=== PATIENT | male | born 1955 | race Caucasian/White ===

== ENCOUNTER → 2016-06-20 | Outpatient (CLI) | payer BC, OTHER ==
[~2016-06-20] MED LIST: ALBU1AER9 INH; ALBU1NEB10 INH; ASPI81TA82 PO; ATOR-14 PO; BNC/40 PO; ESCI1TAB9 PO; LPR25 PO; MONT1TAB3 PO; MULT-260 PO; NITR0.4S UT; PRED10TA PO; SYMIN160 INH; TIOTCAP INH
[2016-06-20 13:24] LABS: BASO % 0.3 %; BASO ABS # 0.03 K/uL (0-0.2); COMPLETE YES; EOS % 1.2 %; HEMATOCRIT 42.8 % (42-52); IG% 0.6 %; LYMPH % 25.7 %; LYMPH ABS # 2.27 K/uL (1.2-3.4); MEAN CELL VOLUME 93.7 fL (80-100); MEAN CORPUSCULAR HGB CONC 35.3 g/dl (32-36); MEAN PLATELET VOLUME 9.2 fL (7.4-10.4); MONO % 9.4 %; NEUT % 62.8 %; PLATELET COUNT 278 K/uL (130-400); RED BLOOD COUNT 4.57 M/uL (4.7-6.1); WHITE BLOOD COUNT 8.84 K/uL (4.8-10.8)
[2016-06-20 13:34] LABS: ALB/GLOB RATIO 0.9 (0.9-2); ALKALINE PHOSPHATASE 94 U/L (45-117); ALT/SGPT 27 U/L (12-78); AST/SGOT 15 U/L (15-37); BLOOD UREA NITROGEN 12 mg/dl (7-18); BUN/CREATININE RATIO 11.7 (10-20); CARBON DIOXIDE 27 mmol/L (21-32); CHLORIDE 108 mmol/L (98-107); CHOLESTEROL 161 mg/dl (0-200); GLUCOSE 98 mg/dl (70-99); HDL CHOLESTEROL 54 mg/dl; LDL CHOLESTEROL CALCULATED 78 mg/dl; POTASSIUM 4.3 mmol/L (3.5-5.1); SODIUM 144 mmol/L (136-145); TRIGLYCERIDES 145 mg/dl (0-150); VERY LOW DENSITY LIPOPROT CALC 29 mg/dl
[2016-06-20 13:44] LABS: ESTIMATED AVERAGE GLUCOSE 105 mg/dl; HA1C FLAG Normal (Normal)
== END | disposition home or self-care (01) ==
LOC: C.LABMFLN 08:41
PROVIDERS: ATTEND Internal Medicine Pulmonary Disease
DX: G47.19 Other hypersomnia (principal)

== ENCOUNTER 2023-06-06 09:41 | Inpatient (IN) ==
--- NOTE | 2023-06-01 09:32 | Anesthesiology Consultation ---
Date of Service June 01, 2023 Assessment & Plan (1) Encounter for pre-operative examination: - Infectious disease screening: Per assessment on 06/01/23: No known infectious disease contacts or current infectious disease symptoms (does report chronic post-nasal drop at baseline). No noted recent Covid positive test result. - Cardiology visit (04/03/23): "Coronary disease: By history he has coronary artery disease, he had a stress test in December 2021 which was a pharmacologic stress test but nothing since. Since he cannot exert himself very well due to his back pain I think we need to repeat the stress test, especially in view of his chest discomfort although that does not sound typical for ischemia. I am going to her have a dobutamine stress echo done, since time is short I will have that done at the hospital tomorrow.. Congestive heart failure: He carries a diagnosis of congestive heart failure however does not seem to have problems with edema despite being on his feet and being on amlodipine. He is on torsemide. His left ventricular function has been good, as long as he has good left ventricular function on his echo (done as part of his dobutamine stress test) I would not pursue further evaluation.. Hypertension: His blood pressure is good today, he is on a number of antihypertensives but it seems appropriate.. Chest pain: His chest pain is quite atypical but his description of a "tearing" feeling is a little worrisome and since he also has back pain I think we need to exclude an aortic dissection. I think it is unlikely but I do not want to miss that and he has not had a CT angiogram that I can see. I can get that scheduled tomorrow after his stress test.. Dyslipidemia: He is on atorvastatin 20 mg daily, his cholesterol profile is not ideal with a high non-HDL cholesterol (the calculated LDL on his last lipid profile says 11, I believe that is a mistake). I have not changed his atorvastatin but I would try to titrate that up to 80 mg daily if possible. That does not need to be done before surgery. As long as his dobutamine stress echo does not show ischemia, his LV function is good on the ec hocardiogram and he does not have problems with his aorta he should be stable for surgery on Sunday." - PCP visit (05/16/23): "Hyperlipidemia.. Pt will complete lipid panel prior to leaving the office today.. Lumbosacral radiculopathy at L5.. With need for LS spine surgery. f/u was made with [facility] again documenting his clearance and they will contact patient to reschedule surgery.. Pt comes today with his son stating he received a letter from cardiology telling him to see his PCP?.. He was asked to have cardiac clearance and this was done on 04/[address] Hernández. His note stated that if stress test and CT chest is normal pt could proceed with surgery. Unfortunately, while pt was completing testing, his surgery was cancelled. There is a f/u task in this EMR started on 04/10 and on 04/18 the documentation for clearance was faxed to [facility]." Addendum (05/16/23): "Spoke with Kenji in cardiology and she is unaware why patient would have been contacted. There was and Act [address] chest that was completed but pt is aware of this nodule and it has been followed and has been stable." - Surgery was originally scheduled for 04/09/23 but rescheduled to 06/06/23 as patient was still ungoing preop-cardiology workup (CTA + DSE). DSE + CTA chest/abdomen/pelvis done (04/04/23)- No evidence of ischemia/good LV function/no evidence of dissection. Preop labs done 03/26/23 were unremarkable- per patient, surgeon is not having patient update labs prior to rescheduled surgery date. Will order CBC, BMP, T&S for DOS. > Patient acceptable risk for surgery pending preop labs DOS. Chart Review Chart Review: Acceptable Risk for Surgery and Patient NOT seen in Pre Admission Testing History Surgery Operation Date: 06/06/23 11:35 Proposed Procedures p L5-S1 Decompression and Fusion, Spinal Cord Monitoring - Ben Perdomo, Height/Weight Height: 5 ft 6 in Weight: 120.202 kg Allergies Allergy/AdvReac Type Severity Reaction Status Date / Time No Known Allergies Allergy Verified 05/30/23 12:49 Medications Home Medications Medication Instructions Recorded Confirmed Last Taken albuterol sulfate 2.5 mg/3 mL 2.5 mg (3 mL) inhalation Q4H PRN 11/01/22 05/30/23 Unknown (0.083 %) solution for nebulization Shortness Of Breath Or Wheezing #75 mL albuterol sulfate 90 mcg/actuation 2 puff inhalation Q4H PRN 11/01/22 05/30/23 Unknown aerosol inhaler (ProAir HFA) Shortness Of Breath #8.5 grams amlodipine 5 mg tablet 5 mg PO QAM #90 tabs 11/01/22 05/30/23 Unknown metoprolol tartrate 50 mg tablet 50 mg PO BID #180 tabs 11/01/22 05/30/23 Unknown potassium chloride 20 mEq 20 meq PO BID #60 tabs 11/01/22 05/30/23 Unknown tablet,extended release telmisartan 80 mg tablet 80 mg PO QAM #90 tabs 11/01/22 05/30/23 Unknown atorvastatin 40 mg tablet 40 mg PO HS #90 tabs 05/17/23 05/30/23 Unknown nitroglycerin 0.4 mg sublingual 0.4 mg sublingual UD PRN Chest Pain 05/30/23 05/30/23 Unknown tablet (Nitrostat) torsemide 10 mg tablet 20 mg PO QAM 05/30/23 05/30/23 Unknown Past Medical History Medical History CAD (coronary artery disease), [place] coronary artery 2013 cardiac catheterization, non-obstructive COPD (chronic obstructive pulmonary disease) "Controlled" Diastolic congestive heart failure Hepatic steatosis History of blood transfusion In childhood after tonsillectomy History of colon polyps History of COVID-2019- "bad cold" symptoms > resolved Hyperlipidemia Hypertension Mild sleep apnea No device Non compliance w medication regimen "inconsistent use" per PAT RN call 05/30/23 Obesity Post-nasal drip Chronic Pulmonary nodule Under surveillance Past Family History Family History Mother Myocardial infarction Tuberculosis COPD (chronic obstructive pulmonary disease) Cancer Blood and Kidney Cancer Father Myocardial infarction Heart disease Denies family history of Ovarian cancer Prostate cancer Breast cancer Colorectal cancer Past Surgical History Surgical History H/O exploratory laparotomy History of cholecystectomy Hx of cardiac catheterization 2012 ([place])- no stents Hx of carpal tunnel repair B/L Hx of colonoscopy 10/04/22: MAC at [facility] Hx of tonsillectomy Hx of wisdom tooth extraction Social History Smoking Status: Former smoker tobacco type: cigarettes Smoking cigarettes per day: Quit smoking cigarettes 30 years ago Do You Dip or Chew Tobacco: Yes (1 can every 2-3 days/advised npo.) Smoking End Date: 10-12 yr ago Hx Alcohol Use: Yes Alcohol type: beer and hard liquor alcohol intake frequency: 0-2 drinks per day Hx Substance Use: No substance use type: does not use Testing Laboratory Results 03/26/23 WBC 9.47 H/H 14.8/42.8 PLATELETS 300 SODIUM 141 POTASSIUM 3.9 CHLORIDE 106 CO2 30 BUN 15 CREATININE 1.13 GLUCOSE 98 PT 10.7 PTT 26.1 INR 1.0 TYPE AND SCREEN A+Ab- Electrocardiogram Date: 03/26/23 NSR, rate 66 bpm. Incomplete RBBB. Chest X-Ray Date: 03/26/23 No acute chest disease. Stress Test Date: 04/04/23 Type: DSE Negative dobutamine stress echo/ECG for ischemia at 88% MPHR. No chest pain reported. Echo: EF 65-70%. No regional wall motion abnormality. Moderate concentric LVH. No significant valvular abnormalities. Normal RVSP, assuming normal right atrial pressure. Other Testing Chest CTA Date: 04/04/23 1. No evidence for an aortic dissection. 2. Emphysema and chronic interstitial thickening again noted. 3. A stable 7 mm irregular nodule within the right middle lobe. Continued one year chest CT follow-up recommended to ensure stability. 4. Hepatic steatosis. Abd/Pelvis CTA Date: 04/04/23 1. No evidence of aortic dissection. 2. Hepatic steatosis.
[~2023-06-06 09:41] MED LIST changes: +ACETAMINOPHEN 500 MG TAB PO SCH; -ALBU1AER9 INH; -ALBU1NEB10 INH; -ASPI81TA82 PO; -ATOR-14 PO; -BNC/40 PO; +CeleBREX 200 MG CAP PO SCH; -ESCI1TAB9 PO; +GABAPENTIN 300 MG CAP PO SCH; -LPR25 PO; +LR 60ML/HR IV SCH; -MONT1TAB3 PO; -MULT-260 PO; -NITR0.4S UT; -PRED10TA PO; -SYMIN160 INH; -TIOTCAP INH
--- NOTE | 2023-06-06 10:22 | History & Physical Bridge Note ---
Date of Service June 06, 2023 History & Physical Bridge Note I have examined the patient, reviewed the History & Physical and in the interval since the performance of the History & Physical I have noted the following changes of clinical significance: no changes noted
--- NOTE | 2023-06-06 10:23 | History & Physical Report ---
Date of Service June 06, 2023 Assessment & Plan (1) Lumbosacral radiculopathy at L5: Plan: L5-S1 decompression and fusion History of Present Illness Chief Complaint: Back and leg pain Primary Care Provider: Maurisio Aponte MD This is 67-year-old male presents with chronic persistent back and leg pain and failing since course of nonoperative care is here for surgical invention. Allergies Allergy/AdvReac Type Severity Reaction Status Date / Time No Known Allergies Allergy Verified 06/06/23 10:18 Home Medications Medication Instructions Recorded Confirmed Type albuterol sulfate 2.5 mg/3 mL 2.5 mg (3 mL) inhalation Q4H PRN 11/01/22 05/30/23 Rx (0.083 %) solution for nebulization Shortness Of Breath Or Wheezing #75 mL albuterol sulfate 90 mcg/actuation 2 puff inhalation Q4H PRN 11/01/22 05/30/23 Rx aerosol inhaler (ProAir HFA) Shortness Of Breath #8.5 grams amlodipine 5 mg tablet 5 mg PO QAM #90 tabs 11/01/22 05/30/23 Rx metoprolol tartrate 50 mg tablet 50 mg PO BID #180 tabs 11/01/22 05/30/23 Rx potassium chloride 20 mEq 20 meq PO BID #60 tabs 11/01/22 05/30/23 Rx tablet,extended release telmisartan 80 mg tablet 80 mg PO QAM #90 tabs 11/01/22 05/30/23 Rx atorvastatin 40 mg tablet 40 mg PO HS #90 tabs 05/17/23 05/30/23 Rx nitroglycerin 0.4 mg sublingual 0.4 mg sublingual UD PRN Chest Pain 05/30/23 05/30/23 History tablet (Nitrostat) torsemide 10 mg tablet 20 mg PO QAM 05/30/23 05/30/23 History Past Med/Surg History Medical History CAD (coronary artery disease), [place] coronary artery 2013 cardiac catheterization, non-obstructive COPD (chronic obstructive pulmonary disease) "Controlled" Diastolic congestive heart failure Hepatic steatosis History of blood transfusion In childhood after tonsillectomy History of colon polyps History of COVID-2019- "bad cold" symptoms > resolved Hyperlipidemia Hypertension Mild sleep apnea No device Non compliance w medication regimen "inconsistent use" per PAT RN call 05/30/23 Obesity Post-nasal drip Chronic Pulmonary nodule Under surveillance Surgical History H/O exploratory laparotomy History of cholecystectomy Hx of cardiac catheterization 2012 ([place])- no stents Hx of carpal tunnel repair B/L Hx of colonoscopy 10/04/22: MAC at [facility] Hx of tonsillectomy Hx of wisdom tooth extraction Family History Mother Myocardial infarction Tuberculosis COPD (chronic obstructive pulmonary disease) Cancer Blood and Kidney Cancer Father Myocardial infarction Heart disease Denies family history of Ovarian cancer Prostate cancer Breast cancer Colorectal cancer Social History Smoking Status: Former smoker Tobacco Type: Pipe and Smokeless Tobacco (Dip or Chew) Age Started Using Tobacco: 13; Age Quit Using Tobacco: 38; Cigarettes Per Day: Quit smoking cigarettes 30 years ago; Smoking End Date: 10-12 yr ago; Second Hand Exposure: Yes (HX); Do You Dip or Chew Tobacco: Yes (1 can every 2-3 days/advised npo.); Hx Alcohol Use: Yes Alcohol type: beer and hard liquor Alcohol Intake Frequency: 4 or More x per/Week Alcohol Intake Frequency Comment: Once a night Hx Substance Use: No Preferred Language: Ivorian Communication Ability: Effective Visual Impairment: Partially Limited Hearing Ability: Use of Hearing Aid Supervisor Sample Required: No Beliefs That Will Affect Care: None marital status: / marital status details: 42 years. Marcus of COVID infection 04/2020 Current Living Situation: Alone Current Living Situation Comment: Youngest son lives with him at home current occupational status: retired How many Children do You have: 2 How many Children do You have Comment: Oldest son is an officer in the and stays in touch. Youngest son lives with him at home. Other Information That Helps Us Care for You: Yes (pt reports would like to go to rehab post op) Feels Safe at Home: Yes Childhood Exposure to Second-Hand Smoke: No Diet: regular caffeine: Yes (Coffee ) during the past year weight has: remained stable Dental Care, Regularly: No Physical Activity Frequency: 3-4 Times per Week Seatbelt Use: always Sunscreen Use: No Do you think of yourself as: straight/heterosexual Gender Identity: Male Assistive Devices: Glasses and Hearing Aid - Bilateral Assistive Devices Comment: top plate, don't wear hearing aides. Physical Exam Physical Exam: Patient is alert and oriented Heart regular rhythm Lungs clear Results & Data Results & Data Vital Signs (Past 12 Hours) Vital Signs Temp Pulse Resp BP Pulse Ox O2 Del Method 06/06/23 10:11 36.5 C 80 20 132/92 96 Room Air
[2023-06-06 10:31] LABS: Basophils # (auto) 0.06 K/uL (0.00-0.20); Basophils % (auto) 0.6 %; Eosinophils # (auto) 0.15 K/uL (0.00-0.50); Eosinophils % (auto) 1.5 %; Hemoglobin 15.2 g/dl (14.0-18.0); Immature Granulocytes # (auto) 0.04 K/uL (0.01-0.20); Immature Granulocytes % (auto) 0.4 %; Lymphocytes # (auto) 2.14 K/uL (1.20-3.40); Lymphocytes % (auto) 21.3 %; Mean Corpuscular Hemoglobin 31.2 pg (25.0-34.0); Mean Corpuscular Hgb Conc 35.3 g/dL (32.0-36.0); Mean Corpuscular Volume 88.3 fL (80.0-100.0); Mean Platelet Volume 8.7 fL (9.4-12.4); Monocytes # (auto) 0.86 K/uL (0.11-0.59); Monocytes % (auto) 8.6 %; Neutrophils # (auto) 6.78 K/uL (1.40-6.50); Neutrophils % (auto) 67.6 %; Platelet Count 301 K/uL (130-400); RDW Coefficient of Variation 12.8 % (11.5-14.5); RDW Standard Deviation 41.2 fL (36.4-46.3); Red Blood Count 4.87 M/uL (4.70-6.10); White Blood Count 10.03 K/ul (4.8-10.8)
[2023-06-06] MEDS ORDERED: BUPIVACAINE/EPINEPHRINE 0.5% MPF 1:200,000 30 ML VIAL ONE (10:36)
[2023-06-06] MEDS ORDERED: ceFAZolin 330 MG/ML 1 GM VIAL ONE (10:36)
[2023-06-06] MEDS ORDERED: MIDAZOLAM HCL 1 MG/ML 2ML VIAL ONE (10:41)
[2023-06-06] MEDS ORDERED: fentaNYL citrate PF 100 MCG/2 ML VIAL ONE ×3 (10:41→12:26)
[2023-06-06] MEDS ORDERED: HYDROmorphone INJ 2 MG/ML SYR/VIAL IV PRN (10:54)
[2023-06-06] MEDS ORDERED: ePHEDrine sulfate 50 MG/ML AMP IV PRN (10:54)
[2023-06-06] MEDS ORDERED: ONDANSETRON INJ 2 MG/ML 2 ML VIAL IV PRN ×2 (10:54→14:53)
[2023-06-06] MEDS ORDERED: PROMETHAZINE HCL 12.5 MG in SODIUM CHLORIDE 0.9% 50 ML IV PRN ×2 (10:54→14:53)
[2023-06-06] MEDS ORDERED: ATROPINE SULFATE 0.1 MG/ML 10ML SYR IV PRN (10:54)
[2023-06-06] MEDS ORDERED: ROCURONIUM BROMIDE 10 MG/ML 5 ML VIAL IV ONE ×2 (11:24→12:16)
[2023-06-06] MEDS ORDERED: PROPOFOL IV EMULSION 10 MG/ML 20 ML VIAL IV ONE (11:24)
[2023-06-06] MEDS ORDERED: DEXAMETHASONE SOD INJ 4 MG/ML VIAL ONE (11:24)
[2023-06-06] MEDS ORDERED: GLYCOPYRROLATE 0.2 MG/ML VIAL ONE (11:24)
[2023-06-06] MEDS ORDERED: ONDANSETRON INJ 2 MG/ML 2 ML VIAL ONE (11:24)
[2023-06-06] MEDS ORDERED: LIDOCAINE 2% 2 ML VIAL/AMP(20MG/ML) INFIL ONE (11:24)
[2023-06-06] MEDS ORDERED: FLOSEAL HEMOSTATIC MATRIX 10ML TOP ONE (11:39)
[2023-06-06] MEDS ORDERED: PHENYLEPHRINE 100MCG/ML 10ML SYR IV ONE (11:47)
[2023-06-06 11:56] LABS: BUN Creatinine Ratio 12.7 (10-20); Calcium 9.6 mg/dl (8.6-10.3); Creatinine Clr Calc Pharmacy 65.7 ml/min; Est GFR (Non-African American) 57.8 ml/min; Potassium 3.5 mmol/L (3.5-5.1)
[2023-06-06] MEDS ORDERED: SUGAMMADEX SODIUM 200 MG/2 ML VIAL IV ONE (12:33)
--- NOTE | 2023-06-06 12:44 | Operative Report ---
Post Operative Report Pre & Post Diagnosis Operation Date: 06/06/23 11:35 Pre-Op Diagnosis: Lumbosacral Radiculopathy at L5 Post-Op Diagnosis: Lumbosacral Radiculopathy at L5 I identified the patient and participated in the time-out.: Yes Procedure Operation Date: 06/06/23 11:35 Actual Procedures #1 lumbar decompression bilaterally facetectomies and foraminotomies L4-L5 L5- S1. #2 posterior spinal fusion L4 S1. #3 placed posterior instrumentation L5- S1. #4 interbody fusion L5-S1. #5 placement Spira 15 x 26 mm x 2 at L5-S1. #6 placement locally harvested morselized autograft in the posterior gutters. #7 placement of Morpheus bone graft in the interbody space and infuse collagen sponge combined with master graft in the posterior lateral gutters. Surgeon Ben Perdomo, DO Podiatric Surgeon Cassidy Daniels Estimated Blood Loss 200 Findings See Below The patient is 5 foot 6 weighing over 114 kg with a BMI in excess of 40. Patient's body habitus did contribute to significant technical difficulty with positioning exposure and the procedure itself adding at least 50% increased operative time. Specimens None Indications This is a 67-year-old male presents above-mentioned diagnosis and failing since course of nonoperative care is here for surgical invention. Description of Procedure Patient was met with identified informed consent obtained. Patient was then taken to the operative suite underwent patient placed in a prone position the Guero table top the Hemanth frame. All bony prominences well-padded eyes inspected to ensure no external pressure placed upon them. This point lumbar spine was prepped draped in a sterile fashion. Sharp dissection with the assistance of Bovie cautery was formed down to and exposing the lamina and transverse processes of L5 and the sacral ala bilaterally. From caudal to cephalad fashion complete laminectomy of L5 partial laminectomy of L4 was performed including bilateral medial facetectomies and foraminotomies addressing all spinal stenosis. Pedicle screws were then placed in L5 and S1 levels bilaterally with assistance of fluoroscopy and appropriate sized paolo placed. By way the transforaminal approach the right a discectomy of L5-S1 was performed endplates guided to subcortical bleeding bone and a 15 x 26 mm Spira cage filled with Morpheus tapped in position. Then proceeded the transforaminal region on the left completed the discectomy curetted the endplates to subcortical bleeding bone and placed a second 15 x 26 mm Spira cage with Morpheus bone graft into position. The rods were then compressed locked into final position bilaterally. The transverse processes of L5 and the sacral ala burred to subcortically bone. Infuse collagen sponge combined with mass graft and local autograft placed in the posterior lateral gutters. 15 round SAMANTA inserted. The incision was then closed with 1 Vicryl the fascia 2-0 Vicryl subcutaneously and 4 Monocryl for final skin closure. Steri-Strips sterile dressing placed. Patient waken taken to PACU in stable condition. Please note spinal cord monitoring was utilized at the procedure no changes noted. Lastly Cassidy Daniels was present at the entire procedure and on the patient positioning complex portion of the surgery and final skin closure. I attest to the content of the Intraoperative Record and any orders documented therein. Any exceptions are noted below.
[2023-06-06] MEDS: fentaNYL citrate PF 100 MCG/2 ML VIAL IV PRN ×3 (13:17→13:55)
[2023-06-06] MEDS ORDERED: ALBUTEROL HFA 8 GM INHALER INH ONE (14:06)
--- NOTE | 2023-06-06 14:21 | Anesthesiology Progress Note ---
Date of Service June 06, 2023 Anesthesia Post Procedure Vital Signs Vital Signs: Temp Pulse Pulse Resp BP Pulse Ox O2 Del Method 06/06/23 14:00 83 16 130/100 94 Nasal Cannula 06/06/23 13:50 36.6 C 87 12 124/90 94 Nasal Cannula 06/06/23 13:40 93 H 12 136/100 93 Nasal Cannula 06/06/23 13:30 92 H 12 91/69 L 93 Nasal Cannula 06/06/23 13:20 94 H 20 142/101 H 93 Nasal Cannula 06/06/23 13:10 87 16 159/94 H 98 Nasal Cannula 06/06/23 13:01 36.5 C 86 16 147/109 H 98 Oxymask 06/06/23 10:11 36.5 C 80 20 132/92 96 Room Air O2 Flow Rate 06/06/23 14:00 2 06/06/23 13:50 2 06/06/23 13:40 2 06/06/23 13:30 2 06/06/23 13:20 2 06/06/23 13:10 2 06/06/23 13:01 6 06/06/23 10:11 Pain Intensity Bilateral Lower Back: Pain Intensity: 4 Transfer of Care Handoff Completed per policy Notes Mental Status: alert / awake / arousable Patient Amnestic to Procedure: Yes Nausea / Vomiting: adequately controlled Pain: adequately controlled Airway Patency, RR, SpO2: stable & adequate BP & HR: stable & adequate Hydration State: stable & adequate Anesthetic Complications: no major complications apparent
[2023-06-06] MEDS ORDERED: DO NOT ADMINISTER FLU VACCINE PRN (14:53)
[2023-06-06] MEDS ORDERED: ALUMINUM/MAGNESIUM SUSP 30 ML UDC PO PRN (14:53)
[2023-06-06] MEDS ORDERED: hydrOXYzine HCl 25 MG TAB PO PRN (14:53)
[2023-06-06] MEDS ORDERED: DO NOT ADMINISTER PNEUMOCOCCAL VACCINE PRN (14:53)
[2023-06-06] MEDS ORDERED: LORazepam 0.5 MG TAB PO PRN (14:53)
[2023-06-06] MEDS ORDERED: MAGNESIUM HYDROXIDE SUSP 30 ML UDC PO PRN (14:53)
[2023-06-06] MEDS ORDERED: FAMOTIDINE 20 MG TAB PO PRN (14:53)
[2023-06-06] MEDS ORDERED: METOCLOPRAMIDE HCL INJ 5 MG/ML 2 ML VIAL IV PRN (14:53)
[2023-06-06] MEDS ORDERED: NITROGLYCERIN SL 0.4 MG/TAB TAB SL PRN (14:53)
[2023-06-06] MEDS ORDERED: HYDROmorphone INJ 1 MG/ML SYRINGE IV PRN (14:53)
[2023-06-06] MEDS ORDERED: ACETAMINOPHEN 1,000 MG/100 ML VIAL IV PRN (14:53)
[2023-06-06] MEDS ORDERED: bisacodyL 10 MG SUPP PR PRN (14:53)
[2023-06-06] MEDS ORDERED: ONDANSETRON 4 MG OD TAB PO PRN (14:53)
[2023-06-06] MEDS ORDERED: SOD PHOSPHATE/SOD BIPHOSPHATE ENEMA 132 ML BTL PR PRN (14:53)
[2023-06-06] MEDS ORDERED: NALOXONE HCL 0.4 MG/1 ML VIAL/CARP IV PRN (14:53)
[2023-06-06] MEDS ORDERED: LORazepam 0.5 MG in SYRINGE 0.25 ML IV PRN (14:53)
[2023-06-06] MEDS ORDERED: ACETAMINOPHEN 500 MG TAB PO PRN (14:53)
[2023-06-06] MEDS ORDERED: HYDROmorphone INJ 0.5 MG/0.5 ML SYR IV PRN (14:53)
[2023-06-06] MEDS ORDERED: ALBUTEROL HFA 8 GM INHALER INH PRN (14:53)
[2023-06-06] MEDS ORDERED: diphenhydrAMINE Capsule 25 MG CAP PO PRN (14:53)
--- NOTE | 2023-06-06 15:03 | Fluoroscopy Report ---
[place] lumbar spine 2-3V CLINICAL HISTORY: L5-S1 DECOMP/FUSION TECHNIQUE: 2 views were obtained with the C-arm in the OR with the above procedure. Total fluoroscopy time was 21.4 seconds. Radiation dose was 21.95 mGy. Comparison: Comparison is made to CT abdomen pelvis 04/04/2023 FINDINGS/IMPRESSION: Intraoperative images were obtained of L5-S1 decompression and fusion. Please correlate with intraoperative fluoroscopy and operative report. ACT 112: Negative or not required by law. Electronically signed by: Nino Peña M.D. 06/06/2023 3:02 PM
--- NOTE | 2023-06-06 16:18 | Hospitalist Consultation ---
Date of Consultation June 06, 2023 Assessment & Plan (1) S/P lumbar spinal fusion: -The patient is Post-op Day #0, S/P L5-S1 Decompression and Fusion, Spinal Cord Monitoring with Dr. Perdomo -Perioperative abx, DVT PPX, and pain control per the primary team -No reported intraoperative complications, EBL was listed as 5 cc -Patient is currently hemodynamically stable and stable on 2L NC, and non-toxic appearing -No acute lab abnormalities today -Agree with CBC and BMP tomorrow, we will follow -Patient will need to be monitoring closely moving forward for alcohol withdrawal with his nightly alcohol use -Medicine will continue to follow, reach out with any questions/concerns (2) Alcohol abuse: -Patient reports nightly alcohol use consisting of 2 half pints of tequila and a beer -Last drink was last night -Denies a hx of withdrawal symptoms -No current signs/symptoms of active withdrawal at this time -Will start AWSS with at risk protocol -Will give 100 100 mg IV thiamine and 1mg IV folic acid now >Will continue daily PO thiamine and folic acid tomorrow -If he begins to develop sings/symptoms of alcohol withdrawal will need to be upgraded to med/tele -Will obtain ECG now (3) CHF (congestive heart failure): -Patient has a hx of HFpEF -Currently euvolemic on exam -S/P 1L LR post-op -Maintenance LR had been ordered at 150 mL, decreasing to 100 mL/hr for now -Explained to his nurse that we can DC his IV fluids if he is able to safely eat/drink -Continue to monitor volume status closely (4) Hypertension: -Currently stable -Agree with continuing BID metoprolol tonight -Agree with resuming amlodipine tomorrow am if hemodynamically stable -Can resume Telmisartan tomorrow am if hemodynamically stable and renal function is stable -Can plan to resume Torsemide tomorrow as he is receiving post-op IV hydration at this time (5) Hyperlipidemia: -Continue statin (6) Chronic obstructive pulmonary disease: -Previous smoker -Was stable on 2L NC at the time of exam, order placed to titrate O2 to keep SpO2 between 89-92% -Lung sounds are clear -Continue prn albuterol -Incentive spirometry ordered Plan The patient was discussed with Dr. Boland at the time of the consult History of Present Illness Reason for Consultation: Post-op medical management Requesting Physician: Ben Perdomo DO Attending Physician: Dr. Dylan Boland History of Present Illness Demetris is a 67 year old male with a PMH significant for CAD, HTN, HFpEF, hyperlipidemia, NEISHA, COPD, and chronic back pain who presented to [facility] on 06[facility]/23 for L5-S1 Decompression and Fusion, Spinal Cord Monitoring with Dr. Perdomo. Per the operative report, EBL was listed as 200 cc, anesthesia type was not listed, and there were no reported intraoperative complications. Review of his vitals shows him to be stable on 3L NC and mildly hypertensive at 163/100 prior to my exam. At the time of the exam the patient was sitting in bed in no acute distress with his sons sitting bedside. He states that he is currently feeling well and wants to try and get out of bed soon. I explained to him that he needs to follow his nurses' orders as they will know what he can safely do post-op. When asked, he confirms that he is a former smoker, current smokeless tobacco user, and daily alcohol user. When asked, he states that he drinks 2 "juice glasses" of tequila a night and a beer as well. His one son explains that the size of glasses is approximately 1/2 of a pint glass. When asked, he denies a history of withdrawal symptoms when he does not drink alcohol. He did not take any of his home medications this am prior to arrival. He denies recent fever, chills, chest pain, SOB, tremor, anxiety, auditory/visual hallucinations, abd pain, nausea, vomiting, diarrhea, dysuria, hematuria, melenla, LE swelling, and new pain/paresthesias in the LE's since his procedure. Please refer to Dr. Boland's attestation for any changes to the treatment plan Allergies Allergy/AdvReac Type Severity Reaction Status Date / Time No Known Allergies Allergy Verified 06/06/23 10:18 Home Medications Medication Instructions Recorded Confirmed Type albuterol sulfate 2.5 mg/3 mL 2.5 mg (3 mL) inhalation Q4H PRN 11/01/22 06/06/23 Rx (0.083 %) solution for nebulization Shortness Of Breath Or Wheezing #75 mL albuterol sulfate 90 mcg/actuation 2 puff inhalation Q4H PRN 11/01/22 06/06/23 Rx aerosol inhaler (ProAir HFA) Shortness Of Breath #8.5 grams amlodipine 5 mg tablet 5 mg PO QAM #90 tabs 11/01/22 06/06/23 Rx metoprolol tartrate 50 mg tablet 50 mg PO BID #180 tabs 11/01/22 06/06/23 Rx potassium chloride 20 mEq 20 meq PO BID #60 tabs 11/01/22 06/06/23 Rx tablet,extended release telmisartan 80 mg tablet 80 mg PO QAM #90 tabs 11/01/22 06/06/23 Rx atorvastatin 40 mg tablet 40 mg PO HS #90 tabs 05/17/23 06/06/23 Rx nitroglycerin 0.4 mg sublingual 0.4 mg sublingual UD PRN Chest Pain 05/30/23 06/06/23 History tablet (Nitrostat) torsemide 10 mg tablet 20 mg PO QAM 05/30/23 06/06/23 History Patient History Medical History CAD (coronary artery disease), [place] coronary artery 2012 cardiac catheterization, non-obstructive COPD (chronic obstructive pulmonary disease) "Controlled" Diastolic congestive heart failure Hepatic steatosis History of blood transfusion In childhood after tonsillectomy History of colon polyps History of COVID-2019- "bad cold" symptoms > resolved Hyperlipidemia Hypertension Mild sleep apnea No device Non compliance w medication regimen "inconsistent use" per PAT RN call 05/30/23 Obesity Post-nasal drip Chronic Pulmonary nodule Under surveillance Surgical History H/O exploratory laparotomy History of cholecystectomy Hx of cardiac catheterization [place] no stents Hx of carpal tunnel repair B/L Hx of colonoscopy 10/04/22: MAC at [facility] Hx of tonsillectomy Hx of wisdom tooth extraction Family History Mother Myocardial infarction Tuberculosis COPD (chronic obstructive pulmonary disease) Cancer Blood and Kidney Cancer Father Myocardial infarction Heart disease Denies family history of Ovarian cancer Prostate cancer Breast cancer Colorectal cancer Social History Smoking Status: Former smoker Tobacco Type: Pipe and Smokeless Tobacco (Dip or Chew) Age Started Using Tobacco: 13; Age Quit Using Tobacco: 38; Cigarettes Per Day: Quit smoking cigarettes 30 years ago; Smoking End Date: 10-12 yr ago; Second Hand Exposure: Yes (HX); Do You Dip or Chew Tobacco: Yes (1 can every 2-3 days/advised npo.); Hx Alcohol Use: Yes Alcohol type: beer and hard liquor Alcohol Intake Frequency: 4 or More x per/Week Alcohol Intake Frequency Comment: Once a night Hx Substance Use: No Preferred Language: American Communication Ability: Effective Visual Impairment: Partially Limited Hearing Ability: Use of Hearing Aid Event Av Operator Required: No Beliefs That Will Affect Care: None marital status: / marital status details: 42 years. Marcus of COVID infection 04/2020 Current Living Situation: Alone Current Living Situation Comment: Youngest son lives with him at home current occupational status: retired How many Children do You have: 2 How many Children do You have Comment: Oldest son is an officer in the and stays in touch. Youngest son lives with him at home. Other Information That Helps Us Care for You: Yes (pt reports would like to go to rehab post op) Feels Safe at Home: Yes Childhood Exposure to Second-Hand Smoke: No Diet: regular caffeine: Yes (Coffee ) during the past year weight has: remained stable Dental Care, Regularly: No Physical Activity Frequency: 3-4 Times per Week Seatbelt Use: always Sunscreen Use: No Do you think of yourself as: straight/heterosexual Gender Identity: Male Assistive Devices: Glasses and Hearing Aid - Bilateral Assistive Devices Comment: top plate, don't wear hearing aides. Physical Exam Physical Exam: Physical Exam: General: In no acute distress, stated age, obese, chronically ill-appearing but non-toxic HEENT: Normocephalic, atraumatic, no scleral icterus, pupils around round, symmetrical, and reactive to light, moist mucus membranes, trachea midline, no thyromegaly Chest/Pulm: No respiratory distress, symmetrical chest expansion, clear breath sounds throughout Cardiac: RRR, no murmurs noted Abdomen: Negative for ascites and bruising, normoactive bowel sounds, soft, non-tender to palpation throughout Musculoskeletal: Currently with surgical site bandaged and without signs of drainage, intact and symmetrical sensation and motor function and in the BL LE's Extremities: Radial, dorsalis pedis, and posterior tibial pulses are intact and symmetrical, no edema noted in the BL LE's Skin: Warm, dry, no rashes , lesions, or scars noted Neuro: Alert and oriented to person, place, month, year, no focal defects, intact and symmetrical strength in the BL LE's, no tremors noted Psych: No acute distress, calm and cooperative during the exam Results & Data Results & Data Vital Signs (Past 12 Hours) Vital Signs Temp Pulse Pulse Resp BP Pulse Ox O2 Del Method 06/06/23 15:30 36.6 C 94 H 16 163/100 H 96 Nasal Cannula 06/06/23 15:01 88 18 128/79 96 Nasal Cannula 06/06/23 14:20 88 20 111/80 94 Nasal Cannula 06/06/23 14:10 87 16 136/99 94 Nasal Cannula 06/06/23 14:00 83 16 130/100 94 Nasal Cannula 06/06/23 13:50 36.6 C 87 12 124/90 94 Nasal Cannula 06/06/23 13:40 93 H 12 136/100 93 Nasal Cannula 06/06/23 13:30 92 H 12 91/69 L 93 Nasal Cannula 06/06/23 13:20 94 H 20 142/101 H 93 Nasal Cannula 06/06/23 13:10 87 16 159/94 H 98 Nasal Cannula 06/06/23 13:01 36.5 C 86 16 147/109 H 98 Oxymask 06/06/23 10:11 36.5 C 80 20 132/92 96 Room Air O2 Flow Rate 06/06/23 15:30 3 06/06/23 15:01 3 06/06/23 14:20 2 06/06/23 14:10 2 06/06/23 14:00 2 06/06/23 13:50 2 06/06/23 13:40 2 06/06/23 13:30 2 06/06/23 13:20 2 06/06/23 13:10 2 06/06/23 13:01 6 06/06/23 10:11 Laboratory Results Abnormal lab results 06/06/23 Range/Units 10:09 MPV 8.7 L (9.4-12.4) fL Neut # (Auto) 6.78 H (1.40-6.50) K/uL [place] # (Auto) 0.86 H (0.11-0.59) K/uL Chloride 109 H (98-107) mmol/L Anion Gap 12 H (3-11) Glucose 112 H (70-99(Fasting)) mg/dl Diagnostic Findings Lumbar Spine X-Ray 06/06/23 00:00 [place] lumbar spine 2-3V CLINICAL HISTORY: L5-S1 DECOMP/FUSION TECHNIQUE: 2 views were obtained with the C-arm in the OR with the above procedure. Total fluoroscopy time was 21.4 seconds. Radiation dose was 21.95 mGy. Comparison: Comparison is made to CT abdomen pelvis 04/04/2023 FINDINGS/IMPRESSION: Intraoperative images were obtained of L5-S1 decompression and fusion. Please correlate with intraoperative fluoroscopy and operative report. ACT 112: Negative or not required by law. Electronically signed by: Nino Peña M.D. 06/06/2023 3:02 PM ECG Additional Comments: Will obtain at the time of the consult PG Care Time/CCT Total # of Minutes Spent Total Time Spent with Patient: Total time spent is greater than 50% in coordination of care (as documented) at patient's floor/unit and/or counseling patient: Coding [place] [address] IN/OBS CONSULT LVL 5,80M Patient Type Established History Comprehensive Exam Comprehensive Medical Decision Making High Complexity Diagnoses S/P lumbar spinal fusion Z98.1 Alcohol abuse F10.10 CHF (congestive heart failure) I50.9 Primary hypertension I10 Hypertension type: primary hypertension Hyperlipidemia, unspecified hyperlipidemia type E78.5 Hyperlipidemia type: unspecified Chronic obstructive pulmonary disease J44.9 COPD type: unspecified COPD (4) Hypertension Hypertension type: primary hypertension Qualified Code(s): I10 - Essential (primary) hypertension (5) Hyperlipidemia Hyperlipidemia type: unspecified Qualified Code(s): E78.5 - Hyperlipidemia, unspecified (6) Chronic obstructive pulmonary disease COPD type: unspecified COPD Qualified Code(s): J44.9 - Chronic obstructive pulmonary disease, unspecified
[2023-06-06] MEDS: oxyCODONE HCL IR 5 MG TAB (IMMEDIATE RELEASE) PO PRN ×2 (16:21→20:13)
[2023-06-06] MEDS: LACTATED RINGER'S 1,000 ML IV SCH (16:29)
[2023-06-06] MEDS ORDERED: LORazepam 1 MG in SYRINGE 0.5 ML IV PRN (16:38)
[2023-06-06] MEDS ORDERED: POTASSIUM CHLORIDE CRTAB 20 MEQ TABCR PO STA (16:41)
[2023-06-06] MEDS ORDERED: FOLIC ACID 1 MG in SYRINGE 9.8 ML IV STA (16:42)
[2023-06-06] MEDS ORDERED: THIAMINE HCL 100 MG in SYRINGE 9 ML IV STA (16:42)
[2023-06-06] MEDS: ceFAZolin 2000MG 2,000 MG/15 ML SYR IV SCH (18:15)
[2023-06-06] MEDS: POTASSIUM CHLORIDE CRTAB 20 MEQ TABCR PO SCH (20:11)
[2023-06-06] MEDS: METOPROLOL TARTRATE 50 MG TAB PO SCH (20:11)
[2023-06-06] MEDS: ATORVASTATIN 40 MG TAB PO SCH (20:12)
[2023-06-06] MEDS: DOCUSATE SODIUM/SENNA 50/8.6MG TAB PO SCH (20:12)
[2023-06-06] MEDS: traMADol HCL 50 MG TABLET PO PRN (23:10)
[2023-06-07] MEDS: ceFAZolin 2000MG 2,000 MG/15 ML SYR IV SCH (01:53)
[2023-06-07] MEDS: LACTATED RINGER'S 1,000 ML IV SCH (02:22)
[2023-06-07] MEDS: oxyCODONE HCL IR 5 MG TAB (IMMEDIATE RELEASE) PO PRN ×2 (02:24→21:10)
[2023-06-07] MEDS: POLYETHYLENE (MIRALAX) 17 GM PACK PO SCH ×4 (05:57→23:59)
[2023-06-07 07:31] LABS: Basophils # (auto) 0.03 K/uL (0.00-0.20); Basophils % (auto) 0.2 %; Eosinophils # (auto) 0.01 K/uL (0.00-0.50); Eosinophils % (auto) 0.1 %; Hematocrit (blood only) 35.2 % (42.0-52.0); Hemoglobin 12.6 g/dl (14.0-18.0); Immature Granulocytes # (auto) 0.11 K/uL (0.01-0.20); Immature Granulocytes % (auto) 0.6 %; Lymphocytes % (auto) 12.3 %; Mean Corpuscular Hemoglobin 31.7 pg (25.0-34.0); Mean Corpuscular Hgb Conc 35.8 g/dL (32.0-36.0); Mean Corpuscular Volume 88.7 fL (80.0-100.0); Mean Platelet Volume 9.3 fL (9.4-12.4); Monocytes # (auto) 1.47 K/uL (0.11-0.59); Monocytes % (auto) 8.6 %; Neutrophils # (auto) 13.32 K/uL (1.40-6.50); Neutrophils % (auto) 78.2 %; Platelet Count 310 K/uL (130-400); RDW Standard Deviation 42.4 fL (36.4-46.3); Red Blood Count 3.97 M/uL (4.70-6.10); White Blood Count 17.04 K/ul (4.8-10.8)
[2023-06-07 07:45] LABS: Potassium 4.2 mmol/L (3.5-5.1)
[2023-06-07 07:56] LABS: BUN Creatinine Ratio 11.7 (10-20); Creatinine Clr Calc Pharmacy 57.1 ml/min; Est GFR (African American) 56.5 ml/min; Est GFR (Non-African American) 48.8 ml/min
[2023-06-07] MEDS: TORSEMIDE 10 MG TAB PO SCH (08:04)
[2023-06-07] MEDS: METOPROLOL TARTRATE 50 MG TAB PO SCH ×2 (08:05→21:10)
[2023-06-07] MEDS: amLODIPine BESYLATE 5 MG TAB PO SCH (08:06)
[2023-06-07] MEDS: POTASSIUM CHLORIDE CRTAB 20 MEQ TABCR PO SCH ×2 (08:06→21:10)
[2023-06-07] MEDS: FOLIC ACID 1 MG TAB PO SCH (08:13)
[2023-06-07] MEDS: THIAMINE HCL 100 MG TAB PO SCH (08:14)
--- NOTE | 2023-06-07 08:25 | Orthopedic Progress Note ---
Date of Service June 07, 2023 Assessment & Plan (1) Lumbosacral radiculopathy at L5: Plan: Today we will begin his physical therapy monitor his SAMANTA output. He is progressing appropriately will most likely not require rehab placement. Admission and Anticipated Discharge Date Admission Date: June 06, 2023 Subjective Back pain controlled leg pain markedly improved Physical Exam Physical Exam: Patient is comfortable in bed. Is constricted testing. Results & Data Vital Signs (Past 12 Hours) Vital Signs Temp Pulse Resp BP Pulse Ox O2 Del Method 06/07/23 08:11 74 162/84 H 06/07/23 07:12 36.7 C 72 18 145/89 H 95 Room Air 06/07/23 03:02 36.4 C L 86 18 149/86 H 94 Room Air 06/06/23 22:48 36.9 C 81 18 167/78 H 95 Room Air
[2023-06-07] MEDS ORDERED: TELMISARTAN 40 MG TAB PO SCH (09:00)
[2023-06-07] MEDS: LOSARTAN POTASSIUM 50 MG TAB PO SCH (11:04)
[2023-06-07] MEDS: dexAMETHasone 6 MG in SYRINGE 0 ML IV SCH (11:04)
[2023-06-07] MEDS: traMADol HCL 50 MG TABLET PO PRN (12:41)
--- NOTE | 2023-06-07 13:18 | Hospitalist Progress Note ---
Date of Service June 07, 2023 Assessment & Plan (1) S/P lumbar spinal fusion: Plan: Postoperative day #1. Management per Dr. Perdomo team. No complications to date (2) Alcohol abuse: Plan: History of daily consumption. No current withdrawal symptoms. (3) CHF (congestive heart failure): Plan: Chronic diastolic CHF. Monitor intake and output. No exacerbation currently (4) Hypertension: Plan: Stable. Continue current medical management. (5) Hyperlipidemia: Plan: Stable. Continue statin (6) Chronic obstructive pulmonary disease: Plan: Stable. Continue current medical management Plan Anticipate eventual discharge to home per primary service Admission and Anticipated Discharge Date Admission Date: June 06, 2023 Subjective Alert and oriented. No complaints. Postoperative day 1 after lumbar surgery. All medications reviewed. Hemoglobin down slightly to 12.6 with IV fluids and equilibration. He remains on parenteral dexamethasone once daily. Review of Systems 2 Review of Systems: Constitutional-no fever or chills ENT-no blurred vision, no double vision, no epistaxis, no sore throat Respiratory-no cough, no wheezing, no shortness of breath Cardiac-no palpitations, no chest pain, no syncope GI-no nausea, vomiting, diarrhea, melena, hematochezia -no urinary retention, no urinary incontinence, no dysuria, no hematuria Musculoskeletal-postoperative lumbar discomfort as expected Skin-no bruising, no rashes, no pruritus Neuro-no isolated weakness, no paresthesia, no weakness Psych-no depression, no anxiety Physical Exam 2 Physical Exam: General-alert and oriented x3, no fevers, no chills HEENT-head atraumatic and normocephalic, pupils equal and reactive to light, extraocular muscles intact Neck-no lymphadenopathy or thyromegaly, trachea midline Chest-clear to auscultation. No rales, wheezing or rhonchi Cardiac-regular rate and rhythm, normal S1 and S2 Abdomen-normal bowel sounds, nontender, no hepatosplenomegaly Extremities-limited range of motion of lumbar spine postoperatively as expected. Neuro-cranial nerves II through XII intact, motor and sensory function within normal limits, strength symmetrical, no focal deficits Psych-normal affect, normal mood Results & Data Results & Data Vital Signs (Past 12 Hours) Vital Signs Temp Pulse Resp BP BP Pulse Ox O2 Del Method 06/07/23 10:57 73 119/84 06/07/23 08:11 74 162/84 H 06/07/23 07:12 36.7 C 72 18 145/89 H 95 Room Air 06/07/23 03:02 36.4 C L 86 18 149/86 H 94 Room Air Laboratory Results 06/07/23 06:26 06/07/23 06:26 PG Care Time/CCT Total # of Minutes Spent Total Time Spent with Patient: Total time spent is greater than 50% in coordination of care (as documented) at patient's floor/unit and/or counseling patient: Coding Level of Care Code 58330 SUB INP/OBS CARE 3/50MIN Diagnoses S/P lumbar spinal fusion Z98.1 Alcohol abuse F10.10 CHF (congestive heart failure) I50.9 Primary hypertension I10 Hypertension type: primary hypertension Hyperlipidemia, unspecified hyperlipidemia type E78.5 Hyperlipidemia type: unspecified Chronic obstructive pulmonary disease J44.9 COPD type: unspecified COPD (4) Hypertension Hypertension type: primary hypertension Qualified Code(s): I10 - Essential (primary) hypertension (5) Hyperlipidemia Hyperlipidemia type: unspecified Qualified Code(s): E78.5 - Hyperlipidemia, unspecified (6) Chronic obstructive pulmonary disease COPD type: unspecified COPD Qualified Code(s): J44.9 - Chronic obstructive pulmonary disease, unspecified
--- NOTE | 2023-06-07 19:48 | Electrocardiogram Report ---
Test Reason : Blood Pressure : / mmHG Vent. Rate : 087 BPM Atrial Rate : 087 BPM P-R Int : 174 ms QRS Dur : 104 ms QT Int : 366 ms P-R-T Axes : 037 -21 020 degrees QTc Int : 440 ms Normal sinus rhythm Normal ECG When compared with ECG of 26-MAR-2023 11:49, No significant change was found Confirmed by Jarod Holden ([id number]) on 06/07/2023 7:48:28 PM Referred By: Ben Perdomo Confirmed By:Nicola Holden
[2023-06-07] MEDS: DOCUSATE SODIUM/SENNA 50/8.6MG TAB PO SCH (21:10)
[2023-06-07] MEDS: ATORVASTATIN 40 MG TAB PO SCH (21:10)
[2023-06-08] MEDS: POLYETHYLENE (MIRALAX) 17 GM PACK PO SCH (05:19)
[2023-06-08] MEDS ORDERED: Nursing to Pharmacy Communication SCH (06:30)
[2023-06-08 07:10] LABS: Basophils # (auto) 0.03 K/uL (0.00-0.20); Basophils % (auto) 0.2 %; Hematocrit (blood only) 37.2 % (42.0-52.0); Hemoglobin 12.5 g/dl (14.0-18.0); Immature Granulocytes # (auto) 0.15 K/uL (0.01-0.20); Immature Granulocytes % (auto) 0.9 %; Lymphocytes # (auto) 1.81 K/uL (1.20-3.40); Lymphocytes % (auto) 11.2 %; Mean Corpuscular Hemoglobin 30.8 pg (25.0-34.0); Mean Corpuscular Hgb Conc 33.6 g/dL (32.0-36.0); Mean Corpuscular Volume 91.6 fL (80.0-100.0); Mean Platelet Volume 9.1 fL (9.4-12.4); Monocytes # (auto) 1.64 K/uL (0.11-0.59); Monocytes % (auto) 10.1 %; Neutrophils # (auto) 12.55 K/uL (1.40-6.50); Neutrophils % (auto) 77.6 %; Platelet Count 276 K/uL (130-400); RDW Coefficient of Variation 12.7 % (11.5-14.5); RDW Standard Deviation 42.8 fL (36.4-46.3); Red Blood Count 4.06 M/uL (4.70-6.10); White Blood Count 16.18 K/ul (4.8-10.8)
[2023-06-08 07:36] LABS: BUN Creatinine Ratio 17.6 (10-20); Calcium 9.1 mg/dl (8.6-10.3); Creatinine Clr Calc Pharmacy 63.2 ml/min; Est GFR (African American) 63.9 ml/min; Est GFR (Non-African American) 55.2 ml/min; Potassium 3.9 mmol/L (3.5-5.1)
[2023-06-08] MEDS: amLODIPine BESYLATE 5 MG TAB PO SCH (08:44)
[2023-06-08] MEDS: LOSARTAN POTASSIUM 50 MG TAB PO SCH (08:46)
[2023-06-08] MEDS: dexAMETHasone 6 MG in SYRINGE 0 ML IV SCH (08:46)
[2023-06-08] MEDS: FOLIC ACID 1 MG TAB PO SCH (08:46)
[2023-06-08] MEDS: METOPROLOL TARTRATE 50 MG TAB PO SCH (08:47)
[2023-06-08] MEDS: THIAMINE HCL 100 MG TAB PO SCH (08:47)
[2023-06-08] MEDS: POTASSIUM CHLORIDE CRTAB 20 MEQ TABCR PO SCH (08:47)
[2023-06-08] MEDS: TORSEMIDE 10 MG TAB PO SCH ×2 (08:48→08:51)
--- NOTE | 2023-06-08 09:36 | Discharge Summary ---
Date of Service June 08, 2023 Admission HPI Per Admitting Provider This is 67-year-old male presents with chronic persistent back and leg pain and failing since course of nonoperative care is here for surgical invention. Principal Diagnosis Lumbar spinal stenosis with radiculopathy Discharge Data Allergies Allergy/AdvReac Type Severity Reaction Status Date / Time No Known Allergies Allergy Verified 06/06/23 10:18 Consultations 06/06/23 14:53 Consult Hospitalist Routine Procedures Performed Operation Date: 06/06/23 11:35 Actual Procedures p L5-S1 Decompression and Fusion, Spinal Cord Monitoring(Not Applicable) - Ben Perdomo DO Ordered Studies 06/06/23 [place] lumbar spine 2-3V Routine Hospital Course (1) Lumbosacral radiculopathy at L5: Patient with lumbar decompression fusion tolerated cells taken orthopedic for postoperative. Postop Satinder progressed appropriately. Leg pain markedly improved. Extra-strength testing. SAMANTA drain decreasing probably. Subsequent discharge home. Discharge orders instructions from the chart for further review. Total Time Total Time Spent Total Time Spent (In Minutes): 20 minutes Discharge Plan Discharge Items Patient Disposition: Home - Self-Care Reason For Visit: Spinal Stenosis of Lumbar Region with Radiculopath Discharge Diagnosis: Lumbar spinal stenosis with radiculopathy Activity: As commented below Non-emergency contact: Primary Care Provider Call non-emergency contact if: you have any medication questions Follow-up/Referrals: Maurisio Aponte MD [Primary Care Provider] - Diet: Regular Addtl Attending Provider Instructions: ACTIVITY RECOMMENDATIONS: SELF CARE INSTRUCTIONS AFTER THORACIC/LUMBAR FUSIONS 1. You may walk to your tolerance. It is good exercise for your legs and back. Expect some back and intermittent leg aches and pains. 2. You may perform "counter-top" level activities (make a sandwich, jocelin with a project, etc.). 3. No bending or lifting of more than 10 pounds or back twisting of any nature (roll like a log when turning in bed). 4. You may ride in a car for 20-30 minutes at a time. No driving until after your first visit with your doctor. 5. Frequent changes of position and restricting sitting to 30 minutes at a time will help limit the amount of back spasms and stiffness you may experience. 6. You may discontinue the use of ambulatory aids (cane, crutches, etc.) once your strength and confidence allow. 7. You may wave soldering machine operator the shower and let water strike your incision when you arrive home at least once daily. Do not take a tub bath, sit in a hot tub or go into a swimming pool until after your first recheck in the office. SPECIAL CARE INSTRUCTIONS: VERY IMPORTANT TO READ AND REVIEW A. Your surgical incision has been closed with a cosmetic suture under the skin that will dissolve in about 6 weeks. In 14 days, you can use a pair of clean scissors and cut the suture that is left outside of the skin at the ends of your incision. 1. The small skin tapes can be removed 7 days after surgery if they have not fallen off by that point. 2. You may keep the wound open to air as much as possible to promote healing after post-op day number 5 unless told otherwise by your doctor. 3. If you think the wound looks like it is becoming infected (redness or worsening drainage) and/or you are experiencing fever, chill or worsening back pain and muscle spasms, contact the office so that we may evaluate you as soon as possible. B. Complications are uncommon, but please contact us if you have any signs or symptoms of: 1. wound infection (fever higher than 102.5 degrees F, redness, separation of wound, drainage, or increasing pain from the incision) 2. blood clots in legs (pain, swelling, redness and warmth in legs) 3. urinary tract infection (fever higher than 102.5 degrees F, burning upon urination or increased frequency of urination) 4. nerve problems (inability to walk on your toes or heels, numbness, loss of bowel or bladder control) 5. any other symptoms that concern you C. Please call the office at if you have any concerns or questions about your operation or recovery. D. No smoking! Smoking drastically decreases the chance of a solid fusion. E. Do not take any anti-inflammatory medications (Indocin, Advil, Motrin, Aspirin, Naprosyn, etc.) as these may inhibit the chance of a solid fusion. Tylenol is okay to take for pain. MANAGING PAIN AFTER SPINAL SURGERY 1. Narcotic medication is intended for short-term use and will be provided for surgical pain. Surgical pain usually lasts for a period of 4-6 weeks. Narcotic medication includes Percocet, Vicodin, Darvocet, Tylenol #3 or Lortab. 2. Longer-term pain is more appropriately treated with non-narcotic medication such as Tylenol ES. 3. Muscle spasm is not appropriately treated with narcotics. Muscle relaxers such as Soma, Flexeril or Skelaxin can be used along with Tylenol ES. 4. Remember that we all live with some "aches and pains". This is not unusual or uncommon after an injury or as we get older. a. Back pain is expected and may include muscle spasms for 4 to 6 weeks after surgery. The pain should gradually improve. If the pain worsens for no apparent reason, please contact the office. b. Intermittent leg pain may also be experienced and should not be concerned about unless it worsens for no apparent reason. If so, please contact the office. 5. We will provide appropriate medication within the normal guidelines of their prescribed use. We will also be very cautious and aware of potential abuse and extended duration of patients' medication needs. a. Pain medications are for your comfort and to assist with sleep and rest so that the tissue can heal. They are not provided in order to return to normal activity and should not be used through the day. To do so or worsening pain at night can result from ongoing tissue damage and development of tolerance to the prescribed medicine. 6. Please allow 2-3 days to process refills. Prescriptions will not be mailed but must be picked up at the office. FOLLOW UP VISIT: Keep your scheduled follow-up appointment. Any questions, please call the office at . Pending Studies at Discharge: No Stand-Alone Forms: My [facility], Smoking Cessation Medications and CT Order Prescriptions: New oxycodone 5 mg tablet 5 mg PO Q6H PRN (Reason: pain) Qty: 30 0RF Continued atorvastatin 40 mg tablet 40 mg PO HS Qty: 90 1RF albuterol sulfate 2.5 mg /3 mL (0.083 %) solution for nebulization 2.5 mg INHALATION Q4H MDD . PRN (Reason: Shortness Of Breath Or Wheezing) Qty: 75 0RF albuterol sulfate [ProAir HFA] 90 mcg/actuation HFA aerosol inhaler 2 puff INHALATION Q4H PRN (Reason: Shortness Of Breath) Qty: 8.5 0RF amlodipine 5 mg tablet 5 mg PO QAM Qty: 90 1RF Patient Comments: PT IS NOT TAKING THIS MEDICATION CURRENTLY metoprolol tartrate 50 mg tablet 50 mg PO BID Qty: 180 1RF Patient Comments: PT IS NOT TAKING THIS MEDICATION CURRENTLY potassium chloride 20 mEq tablet extended release 20 meq PO BID Qty: 60 6RF telmisartan 80 mg tablet 80 mg PO QAM Qty: 90 0RF Rx Instructions: TAKE ONE TABLET BY MOUTH ONCE DAILY torsemide 10 mg tablet 20 mg PO QAM nitroglycerin [Nitrostat] 0.4 mg tablet, sublingual 0.4 mg sublingual UD PRN (Reason: Chest Pain) Patient Comments: last use a couple yrs ago Discharge Orders: Discharge Order (Routine); Ordered 06/08/23 Ordered By: Ben Perdomo Admission Data Admit Date/Time: 06/06/23 12:49 Attending Provider: Ben Perdomo Admit Provider: Ben Perdomo Primary Care Provider: Maurisio Aponte Other Providers: Cezar Rodríguez; Franci Mccurdy; Dylan Donohue; Demetris Perez; Eric Jaramillo; Emory Gold; Maritza Valerio; Kya Stinson; Dorota Mo; Karthik Aranda; Richy Brooks; Erin Hutchinson; Jarod Everett; Dylan Boland; Aram Anguiano; Stacia Winchester; Reyna Teague; Reyna Diaz; Dominick Gold; Kenyetta Lock; Singh Mcdowell; Joaquín Jordan; Ashley Pham; Luz Maria Veliz; Teodoro Molina; Дмитрий Brown; Demetris Talavera; Eric He; Eileen [place]
--- NOTE | 2023-06-08 17:33 | Hospitalist Progress Note ---
Date of Service June 08, 2023 Assessment & Plan (1) S/P lumbar spinal fusion: Plan: Management per Dr. Perdomo team. No complications to date leukocytosis related to steroids had flare of right leg pain that is improving, sounds like sciatica triggered from sitting on the commode for too long discharge home today per orthopedics (2) Alcohol abuse: Plan: History of daily consumption. never developed any withdrawal symptoms. (3) CHF (congestive heart failure): Plan: Chronic diastolic CHF. Monitor intake and output. No exacerbation currently (4) Hypertension: Plan: Stable. Continue current medical management. (5) Hyperlipidemia: Plan: Stable. Continue statin (6) Chronic obstructive pulmonary disease: Plan: Stable. Continue current medical management Admission and Anticipated Discharge Date Admission Date: June 06, 2023 Subjective he is feeling much better today, he did have new onset of pain from his right buttock down to his right great toe following sitting on the commode for 45 minutes last night and eventually having a BM. This pain has been improving overnight he does not have any weakness in the right leg it is somewhat different than his previous back pain prior to surgery. Physical Exam 2 Physical Exam: PHYSICAL EXAMINATION Last 24h vital signs reviewed, see documentation in flowsheet General: comfortable appearing, no distress HEENT: Normocephalic, atraumatic, pupils round and equal, sclerae anicteric, no conjunctival injection, moist mucus membranes Lungs: Normal respiratory effort. Clear to auscultation bilaterally. No RRW Heart: Regular rate and rhythm, no murmurs. No JVD Abdomen: Soft, nontender, nondistended. Bowel sounds present. Extremities: Warm, dry, well-perfused. No extremity edema. Neuro: Alert and oriented x 4, face symmetric, moves 4 extremities well, 5 out of 5 lower extremity strength distally and at hip flexors Psych: Normal affect and behavior Results & Data Results & Data Vital Signs (Past 12 Hours) Vital Signs Temp Pulse Resp BP BP Pulse Ox O2 Del Method 06/08/23 08:45 73 18 128/79 96 Room Air 06/08/23 07:41 36.8 C 62 18 135/86 95 Room Air Laboratory Results 06/08/23 06:23 06/08/23 06:23 PG Care Time/CCT Total # of Minutes Spent Total Time Spent with Patient: Total time spent is greater than 50% in coordination of care (as documented) at patient's floor/unit and/or counseling patient: Coding Level of Care Code 58445 SUB INP/OBS CARE Diagnoses S/P lumbar spinal fusion Z98.1 Alcohol abuse F10.10 CHF (congestive heart failure) I50.9 Primary hypertension I10 Hypertension type: primary hypertension Hyperlipidemia, unspecified hyperlipidemia type E78.5 Hyperlipidemia type: unspecified Chronic obstructive pulmonary disease J44.9 COPD type: unspecified COPD (4) Hypertension Hypertension type: primary hypertension Qualified Code(s): I10 - Essential (primary) hypertension (5) Hyperlipidemia Hyperlipidemia type: unspecified Qualified Code(s): E78.5 - Hyperlipidemia, unspecified (6) Chronic obstructive pulmonary disease COPD type: unspecified COPD Qualified Code(s): J44.9 - Chronic obstructive pulmonary disease, unspecified
== END 2023-06-08 15:00 | disposition home health service (06) | DRG 454 ==
LOC: ASU 09:41 → 3E 12:49

== ENCOUNTER 2023-06-10 10:32 | Inpatient (IN) ==
[2023-06-10] MEDS ORDERED: HYDROmorphone INJ 0.5 MG/0.5 ML SYR IV STA (11:11)
--- NOTE | 2023-06-10 11:11 | Emergency Department Note ---
History of Present Illness General Chief complaint: Back Injury/Pain Time Seen by Provider: 06/10/23 10:59 History of Present Illness Maximum Pain Intensity: 8 This is a 67-year-old male that presents to the emergency department via EMS with complaints of "right leg pain". The patient notes that he recently underwent L-spine surgery performed this past Sunday on 06/06/2023. Per review of the EMR patient underwent lumbar spine surgery performed here by Dr. Perdomo. Patient notes that he was doing well postoperatively but has been experiencing progressive radiating pain down the right leg. He notes that it originates in the right low back and then radiates down the right leg. No fevers or chills. No numbness or tingling. Patient denies any lower extremity weakness, bowel or bladder incontinence, numbness or tingling in the genital region. Home Medications Medication Instructions Recorded Confirmed Type albuterol sulfate 2.5 mg/3 mL 2.5 mg (3 mL) inhalation Q4H PRN 11/01/22 06/10/23 Rx (0.083 %) solution for nebulization Shortness Of Breath Or Wheezing #75 mL albuterol sulfate 90 mcg/actuation 2 puff inhalation Q4H PRN 11/01/22 06/10/23 Rx aerosol inhaler (ProAir HFA) Shortness Of Breath #8.5 grams amlodipine 5 mg tablet 5 mg PO QAM #90 tabs 11/01/22 06/10/23 Rx metoprolol tartrate 50 mg tablet 50 mg PO BID #180 tabs 11/01/22 06/10/23 Rx potassium chloride 20 mEq 20 meq PO BID #60 tabs 11/01/22 06/10/23 Rx tablet,extended release telmisartan 80 mg tablet 80 mg PO QAM #90 tabs 11/01/22 06/10/23 Rx atorvastatin 40 mg tablet 40 mg PO HS #90 tabs 05/17/23 06/10/23 Rx nitroglycerin 0.4 mg sublingual 0.4 mg sublingual UD PRN Chest Pain 05/30/23 06/10/23 History tablet (Nitrostat) torsemide 10 mg tablet 20 mg PO QAM 05/30/23 06/10/23 History oxycodone 5 mg tablet 5 mg PO Q6H PRN pain #30 tabs 06/07/23 06/10/23 Rx Allergies Allergy/AdvReac Type Severity Reaction Status Date / Time No Known Allergies Allergy Verified 06/06/23 10:18 Past Med/Surg History Medical History Post-nasal drip Chronic History of colon polyps History of blood transfusion In childhood after tonsillectomy Non compliance w medication regimen "inconsistent use" per PAT RN call 05/30/23 History of COVID-2019- "bad cold" symptoms > resolved Hepatic steatosis Pulmonary nodule Under surveillance Mild sleep apnea No device Diastolic congestive heart failure CAD (coronary artery disease), [place] coronary artery 2012 cardiac catheterization, non-obstructive Obesity COPD (chronic obstructive pulmonary disease) "Controlled" Hyperlipidemia Hypertension Surgical History Hx of colonoscopy 10/04/22: MAC at [facility] Hx of cardiac catheterization 2012 ([place])- no stents Hx of wisdom tooth extraction Hx of carpal tunnel repair B/L Hx of tonsillectomy H/O exploratory laparotomy History of cholecystectomy Family History Mother Myocardial infarction Tuberculosis COPD (chronic obstructive pulmonary disease) Cancer Blood and Kidney Cancer Father Myocardial infarction Heart disease Denies family history of Ovarian cancer Prostate cancer Breast cancer Colorectal cancer Social History Smoking Status: Never smoker Tobacco Type: Pipe and Smokeless Tobacco (Dip or Chew) Age Started Using Tobacco: 13; Age Quit Using Tobacco: 38; Cigarettes Per Day: Quit smoking cigarettes 30 years ago; Second Hand Exposure: Yes (HX); Do You Dip or Chew Tobacco: Yes (1 can every 2-3 days/advised npo.); Hx Alcohol Use: Yes Alcohol type: beer and hard liquor Alcohol Intake Frequency: 4 or More x per/Week Alcohol Intake Frequency Comment: Once a night Hx Substance Use: No Preferred Language: Belarusian Communication Ability: Effective Visual Impairment: Partially Limited Hearing Ability: Use of Hearing Aid Planner/Scheduler Required: No Beliefs That Will Affect Care: None marital status: / marital status details: 42 years. Marcus of COVID infection 04/2020 Current Living Situation: Alone Current Living Situation Comment: Youngest son lives with him at home current occupational status: retired How many Children do You have: 2 How many Children do You have Comment: Oldest son is an officer in the and stays in touch. Youngest son lives with him at home. Other Information That Helps Us Care for You: No Feels Safe at Home: Yes Childhood Exposure to Second-Hand Smoke: No Diet: regular caffeine: Yes (Coffee ) during the past year weight has: remained stable Dental Care, Regularly: No Physical Activity Frequency: 3-4 Times per Week Seatbelt Use: always Sunscreen Use: No Do you think of yourself as: straight/heterosexual Gender Identity: Male Assistive Devices: Walker Review of Systems A total of 10 systems reviewed and were otherwise negative Physical Exam Vital Signs Vital Signs - 24 hr 06/10/23 10:44 06/10/23 10:58 06/10/23 11:00 Temperature 36.5 C Temperature Source Oral Pulse Rate 99 H 90 91 H Pulse Rate from SpO2 Sensor 85 91 H Respiratory Rate 19 20 15 Respiratory Effort / Characteristics Non-Labored Spontaneous Respiratory Depth Normal Blood Pressure 183/112 H Blood Pressure Mean 135 Pulse Oximetry 98 96 95 Oxygen Delivery Method Room Air Sepsis Recent Fever Within 48 Hours No Sepsis New/Unexplained Change in Mental Status N/A Sepsis Action Taken by Nursing No Action Required 06/10/23 11:00 06/10/23 11:08 06/10/23 11:30 Temperature Temperature Source Pulse Rate 96 H Pulse Rate from SpO2 Sensor Respiratory Rate Respiratory Effort / Characteristics Respiratory Depth Blood Pressure 167/96 H 159/84 H Blood Pressure Mean 108 120 Pulse Oximetry Oxygen Delivery Method Sepsis Recent Fever Within 48 Hours Sepsis New/Unexplained Change in Mental Status Sepsis Action Taken by Nursing 06/10/23 11:30 06/10/23 12:00 06/10/23 12:03 Temperature Temperature Source Pulse Rate 91 H 100 H Pulse Rate from SpO2 Sensor 91 H 94 H Respiratory Rate 24 21 Respiratory Effort / Characteristics Respiratory Depth Blood Pressure 152/90 H Blood Pressure Mean 113 Pulse Oximetry 93 95 Oxygen Delivery Method Sepsis Recent Fever Within 48 Hours Sepsis New/Unexplained Change in Mental Status Sepsis Action Taken by Nursing 06/10/23 12:03 Temperature Temperature Source Pulse Rate 99 H Pulse Rate from SpO2 Sensor 73 Respiratory Rate 21 Respiratory Effort / Characteristics Respiratory Depth Blood Pressure Blood Pressure Mean Pulse Oximetry 94 Oxygen Delivery Method Sepsis Recent Fever Within 48 Hours Sepsis New/Unexplained Change in Mental Status Sepsis Action Taken by Nursing VITAL SIGNS - Vital signs and nursing notes were reviewed. Stable and afebrile. GENERAL -67-year-old male appearing his stated age who is in no acute distress. Communicates well with provider and answers questions appropriately. SKIN - Without rashes. There are Steri-Strips overlying the vertical L-spine incision. No erythema or edema. No dehiscence. HEAD - NC/AT. EYES - PERRL with EOMI bilaterally. EARS - No deformities of external structures noted on gross examination bilaterally. NOSE - Midline and without cyanosis. No epistaxis or purulent drainage noted. MOUTH/OROPHARYNX - Without perioral cyanosis. NECK - No nuchal rigidity. LUNGS - CTA CARDIAC - RRR ABDOMEN - Abdominal contour normal without pulsations or visible masses. BS normoactive all four quadrants. No tenderness, palpable masses, hepatosplenomegaly, or ascites noted. EXTREMITIES - No clubbing or peripheral cyanosis. +5/5 strength noted in UE/LE bilaterally. MUSCULOSKELETALpatient upon my evaluation is laying in the examination bed with the head of the bed allowing him to be in a slightly reclined position. He is slow to turn to the side of the bed for me to assess reflexes and appears to be in pain with movements. Plantarflexion/ dorsiflexion of the lower extremities at the ankle/feet intact actively. NEUROLOGIC - Cranial nerves grossly intact. Patellar reflexes +2/4. PSYCH -patient alert and oriented, pleasant on exam. Course Administered Medications Atorvastatin Calcium (Atorvastatin 40 Mg Tab) 40 mg PO HS [facility] Stop: 07/10/23 20:59 Last Admin: 06/10/23 20:37 Dose: 40 mg Documented By: GRACIELA Gabapentin (Gabapentin 300 Mg Cap) 300 mg PO TID [facility] Stop: 07/10/23 13:59 Last Admin: 06/10/23 20:38 Dose: 300 mg Documented By: Admin: 06/10/23 15:20 Dose: 300 mg Documented By: CS Dexamethasone 8 mg/ Syringe 2 mls @ 1 mls/min IV Q8H [facility] Stop: 06/11/23 06:01 Last Admin: 06/10/23 15:17 Dose: 1 mls/min Documented By: MANSOOR Lactated Ringer's (Lr) 1,000 mls @ 75 mls/hr IV .[id number] [facility] Stop: 07/10/23 13:42 Last Admin: 06/10/23 14:35 Dose: 75 mls/hr Documented By: MANSOOR Metoprolol Tartrate (Metoprolol Tartrate 50 Mg Tab) 50 mg PO BID [facility] Stop: 07/10/23 20:59 Last Admin: 06/10/23 20:37 Dose: 50 mg Documented By: GRACIELA Oxycodone HCl (Oxycodone Hcl Ir 5 Mg Tab (Immediate Release)) 5 - 10 mg PO Q4H PRN PRN Reason: mod to severe pain Stop: 06/24/23 13:42 Last Admin: 06/10/23 20:29 Dose: 10 mg Documented By: Admin: 06/10/23 14:33 Dose: 10 mg Documented By: MANSOOR Potassium Chloride (Potassium Chloride Crtab 20 Meq Tabcr) 20 meq PO BID [place] Stop: 07/10/23 20:59 Last Admin: 06/10/23 20:41 Dose: 20 meq Documented By: GRACIELA Discontinued Medications Amlodipine Besylate (Amlodipine Besylate 5 Mg Tab) 5 mg PO NOW ONE Stop: 06/10/23 15:03 Last Admin: 06/10/23 15:21 Dose: 5 mg Documented By: MANSOOR Hydromorphone HCl (Hydromorphone Inj 0.5 Mg/0.5 Ml Syr) 0.5 mg IV NOW STA Stop: 06/10/23 11:12 Last Admin: 06/10/23 11:26 Dose: 0.5 mg Documented By: BENNIE Hydromorphone HCl (Hydromorphone Inj 0.5 Mg/0.5 Ml Syr) Confirm Administered Dose 0.5 mg .ROUTE .STK-MED ONE Stop: 06/10/23 11:25 Last Admin: 06/10/23 13:19 Dose: Not Given Documented By: BENNIE Magnesium Sulfate/Dextrose (Magnesium Sulfate / D5w) 1 gm in 100 mls @ 50 mls/hr IV Q2H [facility] Stop: 06/10/23 20:29 Last Infusion: 06/10/23 20:38 Dose: Infused Documented By: Admin: 06/10/23 18:37 Dose: 50 mls/hr Documented By: Infusion: 06/10/23 18:37 Dose: Infused Documented By: Admin: 06/10/23 16:51 Dose: 50 mls/hr Documented By: MANSOOR Metoprolol Tartrate (Metoprolol Tartrate 50 Mg Tab) 50 mg PO NOW STA Stop: 06/10/23 15:03 Last Admin: 06/10/23 15:21 Dose: 50 mg Documented By: MANSOOR Potassium Chloride (Potassium Chloride Crtab 20 Meq Tabcr) 40 meq PO NOW STA Stop: 06/10/23 14:40 Last Admin: 06/10/23 15:20 Dose: 40 meq Documented By: MANSOOR Medical Decision Making Laboratory Data 06/10/23 10:45 06/10/23 10:45 Lab Results 06/10/23 Range/Units 10:45 WBC 12.83 H (4.8-10.8) K/ul RBC 4.34 L (4.70-6.10) M/uL Hgb 13.5 L (14.0-18.0) g/dl Hct 39.3 L (42.0-52.0) % MCV 90.6 (80.0-100.0) fL MCH 31.1 (25.0-34.0) pg MCHC 34.4 (32.0-36.0) g/dL RDW Std Deviation 42.0 (36.4-46.3) fL RDW Coeff of Elke 12.7 (11.5-14.5) % Plt Count 315 (130-400) K/uL MPV 8.9 L (9.4-12.4) fL Immature Gran % (Auto) 0.9 % Neut % (Auto) 77.2 % Lymph % (Auto) 10.3 % [place] % (Auto) 11.3 % Eos % (Auto) 0.0 % Baso % (Auto) 0.3 % Neut # (Auto) 9.91 H (1.40-6.50) K/uL Lymph # (Auto) 1.32 (1.20-3.40) K/uL [place] # (Auto) 1.45 H (0.11-0.59) K/uL Eos # (Auto) 0.00 (0.00-0.50) K/uL Baso # (Auto) 0.04 (0.00-0.20) K/uL Immature Gran # (Auto) 0.11 (0.01-0.20) K/uL Sodium 140 (136-145) mmol/L Potassium 3.2 L (3.5-5.1) mmol/L Chloride 103 (98-107) mmol/L Carbon Dioxide 28 (21-32) mmol/L Anion Gap 9 (3-11) BUN 12 (6-23) mg/dl Creatinine 1.06 (0.6-1.4) mg/dl Est Cr Clr Drug Dosing 77.5 ml/min Est GFR ( Amer) 82.6 ml/min Est GFR (Non-Af Amer) 71.3 ml/min BUN/Creatinine Ratio 11.3 (10-20) Glucose 101 H (70-99(Fasting)) mg/dl Calcium 9.3 (8.6-10.3) mg/dl Magnesium 1.7 (1.7-2.4) mg/dl Total Bilirubin 1.0 (0.2-1.0) mg/dl AST 34 (13-39) U/L ALT 48 (7-52) U/L Alkaline Phosphatase 89 (34-104) U/L Total Protein 7.1 (6.0-8.3) gm/dl Albumin 3.8 (3.4-5.0) gm/dl Globulin 3.3 (2.5-4.0) gm/dl Albumin/Globulin Ratio 1.2 (0.9-2) MDM Narrative Patient was seen and evaluated as above in room A12. Review was performed of triage nursing notes and vital signs. I did review pertinent previous visits and patient history. After obtaining a thorough history and physical examination the above work up was performed. Patient presents to us today for evaluation of discomfort in the right leg region that appears to be originating from the low back and is status post L-spine surgery for lumbosacral radiculopathy at L5. Patient underwent surgery on 06/06/2023 here in the hospital. Options of care were discussed with the patient. IV access was established. Labs were drawn. Labs reveal leukocytosis 12.83 likely reactive postsurgery. Hemoglobin 13.5. No emergent metabolic disturbance. Mild hypokalemia noted. No evidence of kidney or liver failure. Urinalysis does not suggest infection. He was medicated with IV analgesia. I discussed his presentation and findings with the patient's surgeon, Dr. Perdomo. At this time we will proceed with inpatient management. Patient amenable to this plan as well as family at bedside. Please refer to further documentation regarding his stay. In the evaluation and treatment of this patient the following differential diagnoses were entertained: Postoperative pain, postoperative infection, cord injury, cauda equina syndrome, DVT, among others. Impression & Plan Radicular pain of right lower extremity, Status post lumbar surgery Discharge Plan Visit Data Chief Complaint: Back Injury/Pain ED Provider: [facility] ED Midlevel Provider: Soto Reddy Discharge Problem: Radicular pain of right lower extremity, Status post lumbar surgery Patient Disposition: Admitted As Inpatient Condition: Good Discharge Instructions Interventions: ED Discharge Assessment Last Done: 06/10/23 13:26
[2023-06-10 11:20] LABS: Basophils # (auto) 0.04 K/uL (0.00-0.20); Basophils % (auto) 0.3 %; Hematocrit (blood only) 39.3 % (42.0-52.0); Hemoglobin 13.5 g/dl (14.0-18.0); Immature Granulocytes # (auto) 0.11 K/uL (0.01-0.20); Immature Granulocytes % (auto) 0.9 %; Lymphocytes # (auto) 1.32 K/uL (1.20-3.40); Lymphocytes % (auto) 10.3 %; Mean Corpuscular Hemoglobin 31.1 pg (25.0-34.0); Mean Corpuscular Hgb Conc 34.4 g/dL (32.0-36.0); Mean Corpuscular Volume 90.6 fL (80.0-100.0); Mean Platelet Volume 8.9 fL (9.4-12.4); Monocytes # (auto) 1.45 K/uL (0.11-0.59); Monocytes % (auto) 11.3 %; Neutrophils # (auto) 9.91 K/uL (1.40-6.50); Neutrophils % (auto) 77.2 %; Platelet Count 315 K/uL (130-400); RDW Coefficient of Variation 12.7 % (11.5-14.5); Red Blood Count 4.34 M/uL (4.70-6.10); White Blood Count 12.83 K/ul (4.8-10.8)
[2023-06-10] MEDS ORDERED: HYDROmorphone INJ 0.5 MG/0.5 ML SYR ONE (11:24)
[2023-06-10 11:39] LABS: Albumin Globulin Ratio 1.2 (0.9-2); Albumin Level 3.8 gm/dl (3.4-5.0); BUN Creatinine Ratio 11.3 (10-20); Calcium 9.3 mg/dl (8.6-10.3); Creatinine Clr Calc Pharmacy 77.5 ml/min; Est GFR (African American) 82.6 ml/min; Est GFR (Non-African American) 71.3 ml/min; Globulin 3.3 gm/dl (2.5-4.0); Potassium 3.2 mmol/L (3.5-5.1); Total Protein 7.1 gm/dl (6.0-8.3)
[2023-06-10] MEDS ORDERED: traMADol HCL 50 MG TABLET PO PRN (13:43)
[2023-06-10] MEDS ORDERED: METOCLOPRAMIDE HCL INJ 5 MG/ML 2 ML VIAL IV PRN (13:43)
[2023-06-10] MEDS ORDERED: NITROGLYCERIN SL 0.4 MG/TAB TAB SL PRN (13:43)
[2023-06-10] MEDS ORDERED: ONDANSETRON INJ 2 MG/ML 2 ML VIAL IV PRN (13:43)
[2023-06-10] MEDS ORDERED: LORazepam 0.5 MG TAB PO PRN (13:43)
[2023-06-10] MEDS ORDERED: HYDROmorphone INJ 0.5 MG/0.5 ML SYR IV PRN (13:43)
[2023-06-10] MEDS ORDERED: NALOXONE HCL 0.4 MG/1 ML VIAL/CARP IV PRN (13:43)
[2023-06-10] MEDS ORDERED: ONDANSETRON 4 MG OD TAB PO PRN (13:43)
[2023-06-10] MEDS ORDERED: PROMETHAZINE HCL 12.5 MG in SODIUM CHLORIDE 0.9% 50 ML IV PRN (13:43)
[2023-06-10] MEDS ORDERED: HYDROmorphone INJ 1 MG/ML SYRINGE IV PRN (13:43)
[2023-06-10] MEDS ORDERED: LORazepam 0.5 MG in SYRINGE 0.25 ML IV PRN (13:43)
[2023-06-10] MEDS ORDERED: ACETAMINOPHEN 1,000 MG/100 ML VIAL IV PRN (13:43)
[2023-06-10] MEDS ORDERED: DOCUSATE SODIUM/SENNA 50/8.6MG TAB PO PRN (13:43)
[2023-06-10] MEDS: oxyCODONE HCL IR 5 MG TAB (IMMEDIATE RELEASE) PO PRN ×2 (14:33→20:29)
[2023-06-10] MEDS: LACTATED RINGER'S 1,000 ML IV SCH (14:35)
[2023-06-10] MEDS ORDERED: POTASSIUM CHLORIDE CRTAB 20 MEQ TABCR PO STA (14:39)
--- NOTE | 2023-06-10 14:41 | Hospitalist Consultation ---
Date of Consultation June 10, 2023 Assessment & Plan (1) Radicular pain of right lower extremity: -Patient presented to the ED for uncontrolled radicular RLE pain since his recent lumbar spinal fusion surgery with Dr. Perdomo on 06/06/23 -Patient noted sharp RLE pain with associated paresthesias but is otherwise without red flag symptoms -Patient's surgical site appears to be healing well, no recent falls or trauma -Re-admitted to to the Ortho-spine service for pain control and ongoing PT/OT -Will confirm with Orthopedics if there are any plans for returning to the OR tomorrow -Lumbar spine xray ordered by the Orthopedics service, will follow -Pain control per the primary team -Currently on 75 mL/hr of LR, will need to monitor closely moving forward to avoid volume overload -Will obtain CXR now to monitor volume status -Patient with an improving leukocytosis since last admission, do not think he needs antibiotics at this time -DVT PPX per the primary team -Will adjust diet to HH/2gm sodium restriction for now -AM CBC, BMP, mag -Medicine will conitnue to follow (2) Alcohol abuse: -Patient was monitoring on AWSS on last admission but never developed withdrawal symptoms -Denies alcohol use at home since DC since he has been taking oxycodone -Will hold AWSS for now (3) Hypokalemia: -Potassium noted to be 3.2 in the ED -Likely due to recent poor oral intake due to pain and continued diuretic use at home -Will give 40 meq PO KCL now -Will obtain mag level -Can conitnue BID home PO KCL dosing at this time -Patient missed dose of torsemide as he did not take his home meds prior to ED arrival. >Will hold dose of torsemide today but plan to resume tomorrow to avoid volume overloading with IV fluids ordered -Monitor am BMP and mag level (4) Chronic obstructive pulmonary disease: -Currently stable on RA with clear lung sounds -No longer smokes but uses chewing tobacco -Incentive spirometry ordered -Will hold albuterol until potassium level is stable (5) CHF (congestive heart failure): -Currently euvolemic on exam -Can continue light IV fluids for now as he has not had much to eat/drink the past 48 hours due to pain -Resume home torsemide tomorrow -Monitor volume status dialy (6) Hypertension: -Stable -Will give missed doses of amlodipine and metoprolol now -Will plan to continue amlodipine, metoprolol, telmisartan, and torsemide tomorrow Plan The patient was discussed with Dr. Boland at the time of the consult Supervising Physician Co-Signing Physician Notes I personally saw and examined the patient. I verified all mujica points and agree with Karthik Aranda PA-C with the following exceptions and/or additions: 67 year old male admitted by ortho spine due to post operative pain. Discussed with RN and pain better controlled after oxycodone. O/E No respiratory distress, Chest CTAB, Abdo distended but soft A/P No change to chronic medications. Agree with recommendations as above Management of post operative pain per ortho spine History of Present Illness Reason for Consultation: Medical management Requesting Physician: Ben Perdomo DO Attending Physician: Dr. Dylan Boland History of Present Illness Demetris is a 67 year old male with a PMH significant for L5-S1 Decompression and Fusion with Dr. Perdomo on 06/06/23, alcohol abuse, CAD, HTN, HFpEF, hyperlipidemia, NEISHA, COPD, and chronic back pain who presented to the [facility] ED on 06/10/23 for uncontrolled lower back pain and increased BL Paresthesias. He was noted to be tachycardic with HR in the 90's and hypertensive at 167/84 but otherwise stable. Labs were significant for an improving leukocytosis of 12.8 with neutrophile predominance of 9, potassium of 3.2. Dr. Perdomo was consulted and admitted the patient for ongoing monitoring and pain control. We were consult for medical management during his admission. At the time of the exam the patient was walking from the bathroom back to his hospital bed. He is moving slowly due to his back and RLE pain. He states that during his last admission he was experiencing radicular back pain. On discharge home this pain progressed to the point that it is uncontrolled on the 5 mg Oxycodone he was discharged with. The pain starts in the low back and goes into the right buttocks and down the RLE. He has associated paresthesias down the RLE as well but denies saddle anesthesia, recent falls, and loss of bowel or bladder control. He denies recent fever, chills, chest pain, SOB, abd pain, nausea, vomiting, diarrhea, dysuria, hematuria, melena. Since his discharge he has not had a drink of alcohol as he has been on the oxycodone. He did not have his am medications today due to his pain. Please refer to Dr. Boland's attestation for any changes to the treatment plan Allergies Allergy/AdvReac Type Severity Reaction Status Date / Time No Known Allergies Allergy Verified 06/06/23 10:18 Home Medications Medication Instructions Recorded Confirmed Type albuterol sulfate 2.5 mg/3 mL 2.5 mg (3 mL) inhalation Q4H PRN 11/01/22 06/10/23 Rx (0.083 %) solution for nebulization Shortness Of Breath Or Wheezing #75 mL albuterol sulfate 90 mcg/actuation 2 puff inhalation Q4H PRN 11/01/22 06/10/23 Rx aerosol inhaler (ProAir HFA) Shortness Of Breath #8.5 grams amlodipine 5 mg tablet 5 mg PO QAM #90 tabs 11/01/22 06/10/23 Rx metoprolol tartrate 50 mg tablet 50 mg PO BID #180 tabs 11/01/22 06/10/23 Rx potassium chloride 20 mEq 20 meq PO BID #60 tabs 11/01/22 06/10/23 Rx tablet,extended release telmisartan 80 mg tablet 80 mg PO QAM #90 tabs 11/01/22 06/10/23 Rx atorvastatin 40 mg tablet 40 mg PO HS #90 tabs 05/17/23 06/10/23 Rx nitroglycerin 0.4 mg sublingual 0.4 mg sublingual UD PRN Chest Pain 05/30/23 06/10/23 History tablet (Nitrostat) torsemide 10 mg tablet 20 mg PO QAM 05/30/23 06/10/23 History oxycodone 5 mg tablet 5 mg PO Q6H PRN pain #30 tabs 06/07/23 06/10/23 Rx Patient History Medical History Post-nasal drip Chronic History of colon polyps History of blood transfusion In childhood after tonsillectomy Non compliance w medication regimen "inconsistent use" per PAT RN call 05/30/23 History of COVID-19 2019- "bad cold" symptoms > resolved Hepatic steatosis Pulmonary nodule Under surveillance Mild sleep apnea No device Diastolic congestive heart failure CAD (coronary artery disease), [place] coronary artery 2012 cardiac catheterization, non-obstructive Obesity COPD (chronic obstructive pulmonary disease) "Controlled" Hyperlipidemia Hypertension Surgical History Hx of colonoscopy 10/04/22: MAC at [facility] Hx of cardiac catheterization 2012 ([place])- no stents Hx of wisdom tooth extraction Hx of carpal tunnel repair B/L Hx of tonsillectomy H/O exploratory laparotomy History of cholecystectomy Family History Mother Myocardial infarction Tuberculosis COPD (chronic obstructive pulmonary disease) Cancer Blood and Kidney Cancer Father Myocardial infarction Heart disease Denies family history of Ovarian cancer Prostate cancer Breast cancer Colorectal cancer Social History Smoking Status: Never smoker Tobacco Type: Pipe and Smokeless Tobacco (Dip or Chew) Age Started Using Tobacco: 13; Age Quit Using Tobacco: 38; Cigarettes Per Day: Quit smoking cigarettes 30 years ago; Second Hand Exposure: Yes (HX); Do You Dip or Chew Tobacco: Yes (1 can every 2-3 days/advised npo.); Hx Alcohol Use: Yes Alcohol type: beer and hard liquor Alcohol Intake Frequency: 4 or More x per/Week Alcohol Intake Frequency Comment: Once a night Hx Substance Use: No Preferred Language: Estonian Communication Ability: Effective Visual Impairment: Partially Limited Hearing Ability: Use of Hearing Aid Core Stacker Required: No Beliefs That Will Affect Care: None marital status: / marital status details: 42 years. Marcus of COVID infection 04/2020 Current Living Situation: Alone Current Living Situation Comment: Youngest son lives with him at home current occupational status: retired How many Children do You have: 2 How many Children do You have Comment: Oldest son is an officer in the and stays in touch. Youngest son lives with him at home. Other Information That Helps Us Care for You: No Feels Safe at Home: Yes Childhood Exposure to Second-Hand Smoke: No Diet: regular caffeine: Yes (Coffee ) during the past year weight has: remained stable Dental Care, Regularly: No Physical Activity Frequency: 3-4 Times per Week Seatbelt Use: always Sunscreen Use: No Do you think of yourself as: straight/heterosexual Gender Identity: Male Assistive Devices: Walker Physical Exam Physical Exam: Physical Exam: General: In mild distress due to pain, stated age, chronically ill appearing but non-toxic HEENT: Normocephalic, atraumatic, no scleral icterus, pupils around round, symmetrical, and reactive to light, moist mucus membranes, trachea midline, no thyromegaly Chest/Pulm: No respiratory distress, symmetrical chest expansion, clear breath sounds throughout Cardiac: RRR, no murmurs noted Abdomen: Negative for ascites and bruising, normoactive bowel sounds, soft, non-tender to palpation throughout Musculoskeletal: Recent lumbar surgical scar is intact and without signs of drainage or infection, decreased strength in the RLE compared to left with straight leg raise due to pain, no acute trauma Extremities: Radial, dorsalis pedis, and posterior tibial pulses are intact and symmetrical, no edema noted in the BL LE's Skin: As described above Neuro: Alert and oriented to person, place, month, year, and president, no focal defects, CN II-XII tested and intact, symmetrical sensation to light touch in the BL LE's, 2+ patellar and Achilles reflex in the BL LE's Psych: Mild distress due to pain but, calm and cooperative during the exam Results & Data Results & Data Vital Signs (Past 12 Hours) Vital Signs Temp Pulse Pulse Resp BP BP Pulse Ox 06/10/23 13:53 37.5 C 95 H 18 167/84 H 95 06/10/23 13:00 94 H 19 149/97 H 95 06/10/23 12:03 99 H 21 94 06/10/23 12:03 152/90 H 06/10/23 12:00 100 H 21 95 06/10/23 11:30 91 H 24 93 06/10/23 11:30 159/84 H 06/10/23 11:08 96 H 06/10/23 11:00 167/96 H 06/10/23 11:00 91 H 15 95 06/10/23 10:58 90 20 96 06/10/23 10:44 36.5 C 99 H 19 183/112 H 98 O2 Del Method 06/10/23 13:53 Room Air 06/10/23 13:00 Room Air 06/10/23 12:03 06/10/23 12:03 06/10/23 12:00 06/10/23 11:30 06/10/23 11:30 06/10/23 11:08 06/10/23 11:00 06/10/23 11:00 06/10/23 10:58 06/10/23 10:44 Room Air Laboratory Results Abnormal lab results 06/10/23 Range/Units 10:45 WBC 12.83 H (4.8-10.8) K/ul RBC 4.34 L (4.70-6.10) M/uL Hgb 13.5 L (14.0-18.0) g/dl Hct 39.3 L (42.0-52.0) % MPV 8.9 L (9.4-12.4) fL Neut # (Auto) 9.91 H (1.40-6.50) K/uL [place] # (Auto) 1.45 H (0.11-0.59) K/uL Potassium 3.2 L (3.5-5.1) mmol/L Glucose 101 H (70-99(Fasting)) mg/dl ECG Additional Comments: Will obtain at the time of the consult PG Care Time/CCT Total # of Minutes Spent Total Time Spent with Patient: Total time spent is greater than 50% in coordination of care (as documented) at patient's floor/unit and/or counseling patient: Coding [place] [address] IN/OBS CONSULT LVL 3,45M Patient Type Established Medical Decision Making High Complexity Diagnoses Radicular pain of right lower extremity M54.10 Alcohol abuse F10.10 Hypokalemia E87.6 Chronic obstructive pulmonary disease J44.9 COPD type: unspecified COPD CHF (congestive heart failure) I50.9 Primary hypertension I10 Hypertension type: primary hypertension (4) Chronic obstructive pulmonary disease COPD type: unspecified COPD Qualified Code(s): J44.9 - Chronic obstructive pulmonary disease, unspecified (6) Hypertension Hypertension type: primary hypertension Qualified Code(s): I10 - Essential (primary) hypertension
[2023-06-10] MEDS ORDERED: METOPROLOL TARTRATE 50 MG TAB PO STA (15:02)
[2023-06-10] MEDS ORDERED: amLODIPine BESYLATE 5 MG TAB PO ONE (15:02)
[2023-06-10 15:05] LABS: Magnesium 1.7 mg/dl (1.7-2.4)
[2023-06-10] MEDS: dexAMETHasone 8 MG in SYRINGE 0 ML IV SCH ×2 (15:17→22:05)
[2023-06-10] MEDS: GABAPENTIN 300 MG CAP PO SCH ×2 (15:20→20:38)
--- NOTE | 2023-06-10 16:39 | XRay Report ---
XR chest 1V portable CLINICAL HISTORY: pain TECHNIQUE: Single frontal radiograph of the chest was obtained. Comparison: Comparison is made to chest radiograph 05/26/2022 FINDINGS: No lines and tubes are seen. The cardiomediastinal silhouette is normal. The lungs are clear. No evid ence of pleural effusion or pneumothorax. IMPRESSION: No acute chest disease. ACT 112: Negative or not required by law. Electronically signed by: Nino Peña M.D. 06/10/2023 4:38 PM
[2023-06-10] MEDS: MAGNESIUM SULFATE / D5W 1 GM/100 ML BAG IV SCH ×2 (16:51→18:37)
--- NOTE | 2023-06-10 17:10 | XRay Report ---
XR lumbar spine 2-3V CLINICAL HISTORY: postop TECHNIQUE: 3 views of the lumbar spine were obtained. Comparison: None available at the time of this dictation. FINDINGS: There is no evidence of an acute fracture. Degenerative changes are seen in the lumbar spine with ost eophyte formation and disc space narrowing. Posterior fixation hardware is seen spanning L5-S1. The a lignment is normal. Vascular calcifications are noted. IMPRESSION: Degenerative changes as above without acute fracture or subluxation. ACT 112: Negative or not required by law. Electronically signed by: Nino Peña M.D. 06/10/2023 5:08 PM
[2023-06-10 18:41] LABS: Appearance Urine Clear (Clear); Bilirubin Urine Negative (Negative); Blood Urine Trace-intact (Negative); Color Urine Yellow; Glucose Urine UA Negative (Negative); Ketones Urine 1+ (Negative); Leukocyte Esterase Urine Negative (Negative); Nitrite Urine Negative (Negative); Protein Urine 2+ (Negative); Urobilinogen Urine Negative (Negative); pH Urine 7.5 (4.5-7.5)
[2023-06-10 18:48] LABS: Bacteria Urine Negative (Negative); Epithelial Cell Urine 0-5 /lpf (0-5); RBC Urine 0-4 /hpf (0-4); WBC Urine 0-5 /hpf (0-5)
[2023-06-10] MEDS: METOPROLOL TARTRATE 50 MG TAB PO SCH (20:37)
[2023-06-10] MEDS: ATORVASTATIN 40 MG TAB PO SCH (20:37)
[2023-06-10] MEDS: POTASSIUM CHLORIDE CRTAB 20 MEQ TABCR PO SCH (20:41)
[2023-06-11] MEDS: LACTATED RINGER'S 1,000 ML IV SCH (04:04)
[2023-06-11] MEDS: dexAMETHasone 8 MG in SYRINGE 0 ML IV SCH (05:36)
[2023-06-11 06:31] LABS: Basophils # (auto) 0.02 K/uL (0.00-0.20); Basophils % (auto) 0.2 %; Hematocrit (blood only) 42.1 % (42.0-52.0); Hemoglobin 13.8 g/dl (14.0-18.0); Immature Granulocytes # (auto) 0.13 K/uL (0.01-0.20); Immature Granulocytes % (auto) 1.1 %; Lymphocytes # (auto) 1.41 K/uL (1.20-3.40); Lymphocytes % (auto) 11.9 %; Mean Corpuscular Hemoglobin 30.9 pg (25.0-34.0); Mean Corpuscular Hgb Conc 32.8 g/dL (32.0-36.0); Mean Corpuscular Volume 94.4 fL (80.0-100.0); Mean Platelet Volume 8.9 fL (9.4-12.4); Monocytes # (auto) 0.51 K/uL (0.11-0.59); Monocytes % (auto) 4.3 %; Neutrophils # (auto) 9.79 K/uL (1.40-6.50); Neutrophils % (auto) 82.5 %; Platelet Count 346 K/uL (130-400); RDW Coefficient of Variation 12.6 % (11.5-14.5); RDW Standard Deviation 43.8 fL (36.4-46.3); Red Blood Count 4.46 M/uL (4.70-6.10); White Blood Count 11.86 K/ul (4.8-10.8)
[2023-06-11 06:52] LABS: BUN Creatinine Ratio 17.9 (10-20); Calcium 9.5 mg/dl (8.6-10.3); Creatinine Clr Calc Pharmacy 70.3 ml/min; Est GFR (African American) 73.3 ml/min; Est GFR (Non-African American) 63.2 ml/min; Magnesium 2.4 mg/dl (1.7-2.4)
[2023-06-11] MEDS: LOSARTAN POTASSIUM 50 MG TAB PO SCH (08:01)
[2023-06-11] MEDS: METOPROLOL TARTRATE 50 MG TAB PO SCH ×2 (08:01→20:10)
[2023-06-11] MEDS: amLODIPine BESYLATE 5 MG TAB PO SCH (08:01)
[2023-06-11] MEDS: GABAPENTIN 300 MG CAP PO SCH ×3 (08:01→20:10)
[2023-06-11] MEDS: TORSEMIDE 10 MG TAB PO SCH (08:02)
[2023-06-11] MEDS: POTASSIUM CHLORIDE CRTAB 20 MEQ TABCR PO SCH ×2 (08:04→20:10)
--- NOTE | 2023-06-11 09:40 | Electrocardiogram Report ---
Test Reason : Blood Pressure : / mmHG Vent. Rate : 080 BPM Atrial Rate : 080 BPM P-R Int : 188 ms QRS Dur : 106 ms QT Int : 380 ms P-R-T Axes : 051 -03 007 degrees QTc Int : 438 ms Sinus rhythm with Premature atrial complexes Otherwise normal ECG When compared with ECG of 06-JUN-2023 18:30, Premature atrial complexes are now Present Confirmed by Royer Bills ([id number]) on 06/11/2023 9:40:21 AM Referred By: REFERRED SELF Confirmed By:Royer Bills
--- NOTE | 2023-06-11 11:03 | History & Physical Report ---
Date of Service June 11, 2023 Assessment & Plan (1) Radicular pain of right lower extremity: Plan: At this time initiate consultations with physical therapy and Occupational Therapy he is expressed interest in possible rehab placement. Will see how he progresses in the next day or so. Admission and Anticipated Discharge Date Admission Date: June 10, 2023 History of Present Illness Chief Complaint: Right leg pain Primary Care Provider: Padma De Los Santos PA-C This is a 67-year-old male status post lumbar decompression fusion. He done well postoperatively but upon return to his home after few days he began exp eriencing significant right greater than left buttock and leg pain. Required a visit to the emergency room for pain control. This morning his pain is improved. He is anxious to begin therapy. Allergies Allergy/AdvReac Type Severity Reaction Status Date / Time No Known Allergies Allergy Verified 06/06/23 10:18 Home Medications Medication Instructions Recorded Confirmed Type albuterol sulfate 2.5 mg/3 mL 2.5 mg (3 mL) inhalation Q4H PRN 11/01/22 06/10/23 Rx (0.083 %) solution for nebulization Shortness Of Breath Or Wheezing #75 mL albuterol sulfate 90 mcg/actuation 2 puff inhalation Q4H PRN 11/01/22 06/10/23 Rx aerosol inhaler (ProAir HFA) Shortness Of Breath #8.5 grams amlodipine 5 mg tablet 5 mg PO QAM #90 tabs 11/01/22 06/10/23 Rx metoprolol tartrate 50 mg tablet 50 mg PO BID #180 tabs 11/01/22 06/10/23 Rx potassium chloride 20 mEq 20 meq PO BID #60 tabs 11/01/22 06/10/23 Rx tablet,extended release telmisartan 80 mg tablet 80 mg PO QAM #90 tabs 11/01/22 06/10/23 Rx atorvastatin 40 mg tablet 40 mg PO HS #90 tabs 05/17/23 06/10/23 Rx nitroglycerin 0.4 mg sublingual 0.4 mg sublingual UD PRN Chest Pain 05/30/23 06/10/23 History tablet (Nitrostat) torsemide 10 mg tablet 20 mg PO QAM 05/30/23 06/10/23 History oxycodone 5 mg tablet 5 mg PO Q6H PRN pain #30 tabs 06/07/23 06/10/23 Rx Past Med/Surg History Medical History Post-nasal drip Chronic History of colon polyps History of blood transfusion In childhood after tonsillectomy Non compliance w medication regimen "inconsistent use" per PAT RN call 05/30/23 History of COVID-2019- "bad cold" symptoms > resolved Hepatic steatosis Pulmonary nodule Under surveillance Mild sleep apnea No device Diastolic congestive heart failure CAD (coronary artery disease), [place] coronary artery 2012 cardiac catheterization, non-obstructive Obesity COPD (chronic obstructive pulmonary disease) "Controlled" Hyperlipidemia Hypertension Surgical History Hx of colonoscopy 10/04/22: MAC at [facility] Hx of cardiac catheterization 2012 ([place])- no stents Hx of wisdom tooth extraction Hx of carpal tunnel repair B/L Hx of tonsillectomy H/O exploratory laparotomy History of cholecystectomy Family History Mother Myocardial infarction Tuberculosis COPD (chronic obstructive pulmonary disease) Cancer Blood and Kidney Cancer Father Myocardial infarction Heart disease Denies family history of Ovarian cancer Prostate cancer Breast cancer Colorectal cancer Social History Smoking Status: Never smoker Tobacco Type: Pipe and Smokeless Tobacco (Dip or Chew) Age Started Using Tobacco: 13; Age Quit Using Tobacco: 38; Cigarettes Per Day: Quit smoking cigarettes 30 years ago; Second Hand Exposure: Yes (HX); Do You Dip or Chew Tobacco: Yes (1 can every 2-3 days/advised npo.); Hx Alcohol Use: Yes Alcohol type: beer and hard liquor Alcohol Intake Frequency: 4 or More x per/Week Alcohol Intake Frequency Comment: Once a night Hx Substance Use: No Preferred Language: Egyptian Communication Ability: Effective Visual Impairment: Partially Limited Hearing Ability: Use of Hearing Aid Building Carpenter Helper Required: No Beliefs That Will Affect Care: None marital status: / marital status details: 42 years. Marcus of COVID infection 04/2020 Current Living Situation: Alone Current Living Situation Comment: Youngest son lives with him at home current occupational status: retired How many Children do You have: 2 How many Children do You have Comment: Oldest son is an officer in the and stays in touch. Youngest son lives with him at home. Other Information That Helps Us Care for You: No Feels Safe at Home: Yes Childhood Exposure to Second-Hand Smoke: No Diet: regular caffeine: Yes (Coffee ) during the past year weight has: remained stable Dental Care, Regularly: No Physical Activity Frequency: 3-4 Times per Week Seatbelt Use: always Sunscreen Use: No Do you think of yourself as: straight/heterosexual Gender Identity: Male Assistive Devices: Walker Physical Exam Physical Exam: On exam he is currently in bed. His son is at the bedside. He is alert and cooperative. He is excellent strength testing lower extremities. Sensory is intact. Results & Data Results & Data Vital Signs (Past 12 Hours) Vital Signs Temp Pulse Resp BP Pulse Ox O2 Del Method 06/11/23 07:46 37.0 C 78 22 167/95 H 98 Room Air Code Status & VTE Plan VTE Prophylaxis Plan VTE Prophylaxis will be ordered: Yes
[2023-06-11] MEDS: ACETAMINOPHEN 500 MG TAB PO PRN (14:00)
[2023-06-11] MEDS ORDERED: ALBUTEROL HFA 8 GM INHALER INH PRN (14:09)
--- NOTE | 2023-06-11 14:09 | Hospitalist Progress Note ---
Date of Service June 11, 2023 Assessment & Plan (1) Radicular pain of right lower extremity: Plan: -Patient presented to the ED for uncontrolled radicular RLE pain since his recent lumbar spinal fusion surgery with Dr. Perdomo on 06/06/23 -Re-admitted to to the Ortho-spine service for pain control and ongoing PT/OT -Pain control and DVT prophylaxis per primary team -Lumbar spine xray no acute process - D/C IVF with hx of CHF and good PO intake -06/10 CXR w/o sign of fluid overload -Patient with an improving leukocytosis since last admission, do not think he needs antibiotics at this time (2) Alcohol abuse: Plan: -Patient was monitoring on AWSS on last admission but never developed withdrawal symptoms -Denies alcohol use at home since DC since he has been taking oxycodone -Will hold AWSS for now (3) Hypokalemia: Plan: -Potassium noted to be 3.2 in the ED, Likely due to recent poor oral intake due to pain and continued diuretic use at home -Replaced orally, now 4.0. Mag 2.4 -Can continue BID home PO KCL -Continue torsemide (4) Chronic obstructive pulmonary disease: Plan: -Currently stable on RA with clear lung sounds -No longer smokes but uses chewing tobacco -Incentive spirometry ordered -PRN albuterol (5) CHF (congestive heart failure): Plan: -Currently euvolemic on exam -IVF stopped at PO intake has improved -Continue home torsemide -Monitor volume status (6) Hypertension: Plan: -Stable -Will continue amlodipine, metoprolol, telmisartan, and torsemide Plan Dispo: continued inpatient stay, pending placement. Medicine team will continue to follow to monitor volume status. Thank you for allowing us to participate in the care of this patient, please reach out with any questions or concerns Admission and Anticipated Discharge Date Admission Date: June 10, 2023 Subjective Patient seen sitting up in the chair, just worked with PT/OT and they are recommending rehab. States that he has been unable to control his pain at home. Reports having good appetite. states "would eat a horse if cooked". Moved his bowels last night. No other acute concerns Review of Systems Review of Systems: All systems reviewed & are unremarkable except as noted in Subjective Physical Exam Physical Exam: General: NAD, VS as above Resp: normal respiratory effort, lungs clear to auscultation CV: RRR, no murmur, Extremities: Moves all extremities, bilateral lower extremity MELANI hose in place Neuro: A&O x3, Results & Data Results & Data Vital Signs (Past 12 Hours) Vital Signs Temp Pulse Resp BP Pulse Ox O2 Del Method 06/11/23 07:46 37.0 C 78 22 167/95 H 98 Room Air Laboratory Results CBC and chemistry reviewed PG Care Time/CCT Total # of Minutes Spent Total Time Spent with Patient: Total time spent is greater than 50% in coordination of care (as documented) at patient's floor/unit and/or counseling patient: Coding Level of Care Code 16989 SUB INP/OBS CARE 2/35MIN Diagnoses Radicular pain of right lower extremity M54.10 Alcohol abuse F10.10 Hypokalemia E87.6 Chronic obstructive pulmonary disease J44.9 COPD type: unspecified COPD CHF (congestive heart failure) I50.9 Primary hypertension I10 Hypertension type: primary hypertension (4) Chronic obstructive pulmonary disease COPD type: unspecified COPD Qualified Code(s): J44.9 - Chronic obstructive pulmonary disease, unspecified (6) Hypertension Hypertension type: primary hypertension Qualified Code(s): I10 - Essential (primary) hypertension
[2023-06-11] MEDS: oxyCODONE HCL IR 5 MG TAB (IMMEDIATE RELEASE) PO PRN (18:32)
[2023-06-11] MEDS: ATORVASTATIN 40 MG TAB PO SCH (20:10)
[2023-06-12] MEDS: oxyCODONE HCL IR 5 MG TAB (IMMEDIATE RELEASE) PO PRN ×3 (01:07→22:18)
[2023-06-12 06:25] LABS: Basophils # (auto) 0.02 K/uL (0.00-0.20); Basophils % (auto) 0.1 %; Hematocrit (blood only) 33.8 % (42.0-52.0); Hemoglobin 11.7 g/dl (14.0-18.0); Immature Granulocytes # (auto) 0.14 K/uL (0.01-0.20); Immature Granulocytes % (auto) 0.7 %; Lymphocytes # (auto) 1.71 K/uL (1.20-3.40); Lymphocytes % (auto) 8.6 %; Mean Corpuscular Hemoglobin 31.4 pg (25.0-34.0); Mean Corpuscular Hgb Conc 34.6 g/dL (32.0-36.0); Mean Corpuscular Volume 90.6 fL (80.0-100.0); Mean Platelet Volume 9.4 fL (9.4-12.4); Monocytes # (auto) 1.47 K/uL (0.11-0.59); Monocytes % (auto) 7.4 %; Neutrophils # (auto) 16.49 K/uL (1.40-6.50); Neutrophils % (auto) 83.2 %; Platelet Count 340 K/uL (130-400); RDW Coefficient of Variation 12.4 % (11.5-14.5); RDW Standard Deviation 40.6 fL (36.4-46.3); Red Blood Count 3.73 M/uL (4.70-6.10); White Blood Count 19.83 K/ul (4.8-10.8)
[2023-06-12] MEDS: METOPROLOL TARTRATE 50 MG TAB PO SCH ×2 (07:42→21:55)
[2023-06-12] MEDS: LOSARTAN POTASSIUM 50 MG TAB PO SCH (07:42)
[2023-06-12] MEDS: amLODIPine BESYLATE 5 MG TAB PO SCH (07:42)
[2023-06-12] MEDS: GABAPENTIN 300 MG CAP PO SCH ×3 (07:43→21:55)
[2023-06-12] MEDS: POTASSIUM CHLORIDE CRTAB 20 MEQ TABCR PO SCH ×2 (07:43→21:55)
[2023-06-12] MEDS: TORSEMIDE 10 MG TAB PO SCH (07:44)
[2023-06-12 08:50] LABS: Calcium 8.9 mg/dl (8.6-10.3); Potassium 4.2 mmol/L (3.5-5.1)
[2023-06-12 08:56] LABS: BUN Creatinine Ratio 25.7 (10-20); Creatinine Clr Calc Pharmacy 71.3 ml/min; Est GFR (African American) 76.4 ml/min
--- NOTE | 2023-06-12 09:53 | Hospitalist Progress Note ---
Date of Service June 12, 2023 Assessment & Plan (1) Radicular pain of right lower extremity: Plan: -Patient presented to the ED for uncontrolled radicular RLE pain since his recent lumbar spinal fusion surgery with Dr. Perdomo on 06/06/23 -Re-admitted to to the Ortho-spine service for pain control and ongoing PT/OT -Pain control and DVT prophylaxis per primary team -Lumbar spine xray no acute process - D/C IVF with hx of CHF and good PO intake -06/10 CXR w/o sign of fluid overload -Patient leukocytosis improving at admission, has since increased but patient was given steriods (2) Alcohol abuse: Plan: -Patient was monitoring on AWSS on last admission but never developed withdrawal symptoms -Denies alcohol use at home since DC since he has been taking oxycodone -Patient reports nightly drinking to help him sleep since his . -states was given "something" last admission that helped. I spoke with pharmacy and there was nothing scheduled, possibly given prn pain medication or Ativan 0.5mg. - Will add melatonin while inpatient - Patient likely good candidate for trazodone outpatient after stopping narcotic pain medication. Will leave this for discussion with PCP (3) Hypokalemia: Plan: -Potassium noted to be 3.2 in the ED, replaced orally Now resolved. -Can continue BID home PO KCL -Continue torsemide (4) Chronic obstructive pulmonary disease: Plan: -Currently stable on RA with clear lung sounds -No longer smokes but uses chewing tobacco -Incentive spirometry ordered -PRN albuterol (5) CHF (congestive heart failure): Plan: -Currently euvolemic on exam -IVF stopped at PO intake has improved -Continue home torsemide -Monitor volume status (6) Hypertension: Plan: -Stable -Will continue amlodipine, metoprolol, telmisartan, and torsemide Plan Dispo: continued inpatient stay, pending placement, medically stable. Medicine team will continue to follow to monitor ETOH use and insomnia. Thank you for allowing us to participate in the care of this patient, please reach out with any questions or concerns Admission and Anticipated Discharge Date Admission Date: June 10, 2023 Subjective Patient sitting up in the chair, pain currently 4/10 without pain medication. Is waiting on a bed for placement. Good appetite and fluid intake. When discussing patient ETOH use, states that after his in 2019 he has had trouble sleeping and "getting his brain to shut off". He did [facility]. He has never taken medication during his grieving process. States alcohol was his crutch during this and has been using this to help him sleep. Reports beer and a couple shots and within the hour his mind has shut does and he is able to sleep. Denies ETOH use since the operation, states did not sleep well last night. Does report that was given something last admission and that helped with his sleep. Review of Systems Review of Systems: All systems reviewed & are unremarkable except as noted in Subjective Physical Exam Physical Exam: General: NAD, VS as above Resp: normal respiratory effort, lungs clear to auscultation CV: RRR, no murmur, Extremities: Moves all extremities, bilateral lower extremity MELANI hose in place, no edema. Neuro: A&O x3, Results & Data Results & Data Vital Signs (Past 12 Hours) Vital Signs Temp Pulse Resp BP Pulse Ox O2 Del Method 06/12/23 07:21 37.0 C 61 18 145/92 H 97 Room Air Laboratory Results CBC and chemistry reviewed PG Care Time/CCT Total # of Minutes Spent Total Time Spent with Patient: Total time spent is greater than 50% in coordination of care (as documented) at patient's floor/unit and/or counseling patient: Coding Level of Care Code 85378 SUB INP/OBS CARE 2/35MIN Diagnoses Radicular pain of right lower extremity M54.10 Alcohol abuse F10.10 Hypokalemia E87.6 Chronic obstructive pulmonary disease J44.9 COPD type: unspecified COPD CHF (congestive heart failure) I50.9 Primary hypertension I10 Hypertension type: primary hypertension (4) Chronic obstructive pulmonary disease COPD type: unspecified COPD Qualified Code(s): J44.9 - Chronic obstructive pulmonary disease, unspecified (6) Hypertension Hypertension type: primary hypertension Qualified Code(s): I10 - Essential (primary) hypertension
--- NOTE | 2023-06-12 10:10 | Orthopedic Progress Note ---
Date of Service June 12, 2023 Assessment & Plan (1) S/P lumbar spinal fusion: Plan: This time awaiting bed availability at rehab. Will discharge when bed available. Admission and Anticipated Discharge Date Admission Date: June 10, 2023 Subjective Back pain controlled leg symptoms improving Physical Exam Physical Exam: Patient is in the chair at the bedside. He was able to up and ambulate without assisting devices. The strength testing. Results & Data Vital Signs (Past 12 Hours) Vital Signs Temp Pulse Resp BP Pulse Ox O2 Del Method 06/12/23 07:21 37.0 C 61 18 145/92 H 97 Room Air
[2023-06-12] MEDS: ACETAMINOPHEN 500 MG TAB PO PRN (11:28)
[2023-06-12] MEDS ORDERED: POLYETHYLENE (MIRALAX) 17 GM PACK PO PRN (12:53)
[2023-06-12] MEDS ORDERED: MELATONIN 3 MG TAB PO SCH (21:00)
[2023-06-12] MEDS: ATORVASTATIN 40 MG TAB PO SCH (21:55)
[2023-06-13] MEDS: amLODIPine BESYLATE 5 MG TAB PO SCH (08:47)
[2023-06-13] MEDS: METOPROLOL TARTRATE 50 MG TAB PO SCH (08:47)
[2023-06-13] MEDS: LOSARTAN POTASSIUM 50 MG TAB PO SCH (08:48)
[2023-06-13] MEDS: POTASSIUM CHLORIDE CRTAB 20 MEQ TABCR PO SCH (08:49)
[2023-06-13] MEDS: GABAPENTIN 300 MG CAP PO SCH (08:49)
[2023-06-13] MEDS: TORSEMIDE 10 MG TAB PO SCH (08:50)
--- NOTE | 2023-06-13 09:54 | Hospitalist Progress Note ---
Date of Service June 13, 2023 Assessment & Plan (1) Radicular pain of right lower extremity: Plan: -Patient presented to the ED for uncontrolled radicular RLE pain since his recent lumbar spinal fusion surgery with Dr. Perdomo on 06/06/23 -Re-admitted to to the Ortho-spine service for pain control and ongoing PT/OT -Pain control and DVT prophylaxis per primary team -Lumbar spine xray no acute process - D/C IVF with hx of CHF and good PO intake -06/10 CXR w/o sign of fluid overload -Patient leukocytosis improving at admission, has since increased but patient was given steriods (2) Alcohol abuse: Plan: -Patient was monitoring on AWSS on last admission but never developed withdrawal symptoms -Denies alcohol use at home since DC since he has been taking oxycodone -Patient reports nightly drinking to help him sleep since his . -states was given "something" last admission that helped. I spoke with pharmacy and there was nothing scheduled, possibly given prn pain medication or Ativan 0.5mg. - Continue Melatonin nightly at discharge (3) Hypokalemia: Plan: Resolved -Can continue BID home PO KCL -Continue torsemide (4) Chronic obstructive pulmonary disease: Plan: -Currently stable on RA with clear lung sounds -No longer smokes but uses chewing tobacco -PRN albuterol (5) CHF (congestive heart failure): Plan: -Currently euvolemic on exam -IVF stopped at PO intake has improved -Continue home torsemide (6) Hypertension: Plan: -Stable -Will continue amlodipine, metoprolol, telmisartan, and torsemide Plan Dispo:medically stable Hospitalist service will sign off, please reconsult with any new concerns. Admission and Anticipated Discharge Date Admission Date: June 10, 2023 Subjective Patient states he slept much better after taking melatonin. We discussed using this as a sleep aid instead of ETOH and if things worsen to talk to his PCP about trazodone. No acute concerns, hoping to go to rehab today. Review of Systems Review of Systems: All systems reviewed & are unremarkable except as noted in Subjective Physical Exam Physical Exam: General: NAD, lying in bed, VS as above Resp: normal respiratory effort, lungs clear to auscultation CV: RRR, no murmur, Extremities: Moves all extremities, bilateral lower extremity MELANI hose in place, no edema. Neuro: A&O x3, Results & Data Results & Data Vital Signs (Past 12 Hours) Vital Signs Temp Pulse Resp BP Pulse Ox Pulse Ox O2 Del Method 06/13/23 08:46 67 125/76 06/13/23 07:02 37.3 C 65 18 150/92 H 96 Room Air 06/12/23 22:18 Room Air 06/12/23 22:18 95 06/12/23 22:04 36.5 C 65 18 144/84 H 95 Room Air O2 Del Method 06/13/23 08:46 06/13/23 07:02 06/12/23 22:18 06/12/23 22:18 Room Air 06/12/23 22:04 PG Care Time/CCT Total # of Minutes Spent Total Time Spent with Patient: Total time spent is greater than 50% in coordination of care (as documented) at patient's floor/unit and/or counseling patient: Coding Level of Care Code 80389 SUB INP/OBS CARE 2/35MIN Diagnoses Radicular pain of right lower extremity M54.10 Alcohol abuse F10.10 Hypokalemia E87.6 Chronic obstructive pulmonary disease J44.9 COPD type: unspecified COPD CHF (congestive heart failure) I50.9 Primary hypertension I10 Hypertension type: primary hypertension (4) Chronic obstructive pulmonary disease COPD type: unspecified COPD Qualified Code(s): J44.9 - Chronic obstructive pulmonary disease, unspecified (6) Hypertension Hypertension type: primary hypertension Qualified Code(s): I10 - Essential (primary) hypertension
--- NOTE | 2023-06-13 10:46 | Discharge Summary ---
Date of Service June 13, 2023 Admission HPI Per Admitting Provider This is a 67-year-old male status post lumbar decompression fusion. He done well postoperatively but upon return to his home after few days he began experiencing significant right greater than left buttock and leg pain. Required a visit to the emergency room for pain control. This morning his pain is improved. He is anxious to begin therapy. Principal Diagnosis Status post lumbar surgery with radiculopathy Discharge Data Allergies Allergy/AdvReac Type Severity Reaction Status Date / Time No Known Allergies Allergy Verified 06/06/23 10:18 Consultations 06/10/23 11:44 ED Decision to Admit Stat 06/10/23 13:43 Consult Internal Medicine Routine Hospital Course (1) Status post lumbar surgery: Patient was admitted with postoperative radiculopathy. He was medically managed and underwent physical therapy tolerated this well and is improving appropriately subsequently discharged to rehab. Discharge orders instructions found in chart for further view. Total Time Total Time Spent Total Time Spent (In Minutes): 20 minutes Discharge Plan Discharge Items Patient Disposition: Transfer Inpatient Rehab Fac Reason For Visit: back pain Discharge Diagnosis: Status post lumbar decompression fusion Condition on Discharge: Good Activity: As commented below Non-emergency contact: Primary Care Provider Call non-emergency contact if: you have any medication questions Follow-up/Referrals: Padma De Los Santos PA-C [Primary Care Provider] - (hospital follow up, discuss sleep aide?) Diet: Regular Addtl Attending Provider Instructions: ACTIVITY RECOMMENDATIONS: SELF CARE INSTRUCTIONS AFTER THORACIC/LUMBAR FUSIONS 1. You may walk to your tolerance. It is good exercise for your legs and back. Expect some back and intermittent leg aches and pains. 2. You may perform "counter-top" level activities (make a sandwich, jocelin with a project, etc.). 3. No bending or lifting of more than 10 pounds or back twisting of any nature (roll like a log when turning in bed). 4. You may ride in a car for 20-30 minutes at a time. No driving until after your first visit with your doctor. 5. Frequent changes of position and restricting sitting to 30 minutes at a time will help limit the amount of back spasms and stiffness you may experience. 6. You may discontinue the use of ambulatory aids (cane, crutches, etc.) once your strength and confidence allow. 7. You may slide forming machine tender the shower and let water strike your incision when you arrive home at least once daily. Do not take a tub bath, sit in a hot tub or go into a swimming pool until after your first recheck in the office. SPECIAL CARE INSTRUCTIONS: VERY IMPORTANT TO READ AND REVIEW A. Your surgical incision has been closed with a cosmetic suture under the skin that will dissolve in about 6 weeks. In 14 days, you can use a pair of clean scissors and cut the suture that is left outside of the skin at the ends of your incision. 1. The small skin tapes can be removed 7 days after surgery if they have not fallen off by that point. 2. You may keep the wound open to air as much as possible to promote healing after post-op day number 5 unless told otherwise by your doctor. 3. If you think the wound looks like it is becoming infected (redness or worsening drainage) and/or you are experiencing fever, chill or worsening back pain and muscle spasms, contact the office so that we may evaluate you as soon as possible. B. Complications are uncommon, but please contact us if you have any signs or symptoms of: 1. wound infection (fever higher than 102.5 degrees F, redness, separation of wound, drainage, or increasing pain from the incision) 2. blood clots in legs (pain, swelling, redness and warmth in legs) 3. urinary tract infection (fever higher than 102.5 degrees F, burning upon urination or increased frequency of urination) 4. nerve problems (inability to walk on your toes or heels, numbness, loss of bowel or bladder control) 5. any other symptoms that concern you C. Please call the office at if you have any concerns or questions about your operation or recovery. D. No smoking! Smoking drastically decreases the chance of a solid fusion. E. Do not take any anti-inflammatory medications (Indocin, Advil, Motrin, Aspirin, Naprosyn, etc.) as these may inhibit the chance of a solid fusion. Tylenol is okay to take for pain. MANAGING PAIN AFTER SPINAL SURGERY 1. Narcotic medication is intended for short-term use and will be provided for surgical pain. Surgical pain usually lasts for a period of 4-6 weeks. Narcotic medication includes Percocet, Vicodin, Darvocet, Tylenol #3 or Lortab. 2. Longer-term pain is more appropriately treated with non-narcotic medication such as Tylenol ES. 3. Muscle spasm is not appropriately treated with narcotics. Muscle relaxers such as Soma, Flexeril or Skelaxin can be used along with Tylenol ES. 4. Remember that we all live with some "aches and pains". This is not unusual or uncommon after an injury or as we get older. a. Back pain is expected and may include muscle spasms for 4 to 6 weeks after surgery. The pain should gradually improve. If the pain worsens for no apparent reason, please contact the office. b. Intermittent leg pain may also be experienced and should not be concerned about unless it worsens for no apparent reason. If so, please contact the office. 5. We will provide appropriate medication within the normal guidelines of their prescribed use. We will also be very cautious and aware of potential abuse and extended duration of patients' medication needs. a. Pain medications are for your comfort and to assist with sleep and rest so that the tissue can heal. They are not provided in order to return to normal activity and should not be used through the day. To do so or worsening pain at night can result from ongoing tissue damage and development of tolerance to the prescribed medicine. 6. Please allow 2-3 days to process refills. Prescriptions will not be mailed but must be picked up at the office. FOLLOW UP VISIT: Keep your scheduled follow-up appointment. Any questions, please call the office at . Addtl Musical Engineer Provider Instructions: Hospital Medicine: - During your stay we discussed your grieving process and difficulty sleeping. You were started on melatonin while in the hospital and did well with this. If you have trouble sleeping despite this, there may be other medications you would be a good candidate for after leaving the hospital and stopping the demetris cotics, like trazodone. Please follow up with your PCP to discuss this. Pending Studies at Discharge: No Stand-Alone Forms: My [facility] Skilled Items Patient informed of condition?: Yes DNR: Yes Discharge Level of Care: Acute rehab Communicable Disease: No Discharge Prognosis: Improving Lines: None Urinary Catheter: No Medications and DC Order Prescriptions: New gabapentin 300 mg Capsule 300 mg PO TID Qty: 90 2RF oxycodone 5 mg tablet 5 mg PO Q6H PRN (Reason: pain) Qty: 30 0RF Continued atorvastatin 40 mg tablet 40 mg PO HS Qty: 90 1RF albuterol sulfate 2.5 mg /3 mL (0.083 %) solution for nebulization 2.5 mg INHALATION Q4H MDD . PRN (Reason: Shortness Of Breath Or Wheezing) Qty: 75 0RF albuterol sulfate [ProAir HFA] 90 mcg/actuation HFA aerosol inhaler 2 puff INHALATION Q4H PRN (Reason: Shortness Of Breath) Qty: 8.5 0RF amlodipine 5 mg tablet 5 mg PO QAM Qty: 90 1RF Patient Comments: PT IS NOT TAKING THIS MEDICATION CURRENTLY metoprolol tartrate 50 mg tablet 50 mg PO BID Qty: 180 1RF Patient Comments: PT IS NOT TAKING THIS MEDICATION CURRENTLY potassium chloride 20 mEq tablet extended release 20 meq PO BID Qty: 60 6RF telmisartan 80 mg tablet 80 mg PO QAM Qty: 90 0RF Rx Instructions: TAKE ONE TABLET BY MOUTH ONCE DAILY torsemide 10 mg tablet 20 mg PO QAM nitroglycerin [Nitrostat] 0.4 mg tablet, sublingual 0.4 mg sublingual UD PRN (Reason: Chest Pain) Patient Comments: last use a couple yrs ago oxycodone 5 mg tablet 5 mg PO Q6H PRN (Reason: pain) Qty: 30 0RF Discharge Orders: Discharge Order (Routine); Ordered 06/13/23 Ordered By: Ben Perdomo Admission Data Admit Date/Time: 06/10/23 12:20 Attending Provider: Ben Perdomo Admit Provider: Ben Perdomo Primary Care Provider: Padma De Los Santos Other Providers: Ben Perdomo; Eileen Jones
[2023-06-13] MEDS: oxyCODONE HCL IR 5 MG TAB (IMMEDIATE RELEASE) PO PRN (10:59)
== END 2023-06-13 13:58 | DRG 552 ==
LOC: ED 10:32 → 3E 12:20